=== PATIENT | male | born 1945 | race American Indian/Alaskan Native ===

== ENCOUNTER 2020-09-09 16:07 | Emergency (ER) | payer SELFPAY ==
[2020-09-09 16:39] VITALS: BP 148/94
--- NOTE | 2020-09-09 17:13 | Emergency Department Report ---
ED General Adult HPI - General Chief complaint: Sore Throat Stated complaint: THROAT SWOLLEN Time Seen by Provider: 09/09/20 16:55 Source: patient Mode of arrival: Ambulatory Limitations: No Limitations - History of Present Illness Initial comments: 74-year-old -[place] male patient presents with complaints of left-sided throat pain x1 day. He rates his current pain is 6/10 in severity and states it worsens with swallowing. He denies any dental pain, cough, chest pain, shortness of breath, difficulty opening his jaw, or fever/chills/sweats. -: Sudden - Related Data Previous Rx's Medication Instructions Recorded Last Taken Type Omeprazole 40 mg PO DAILY PRN #30 10/27/17 Unknown Rx HYDROcodone/APAP 5-325 [[place] 1 each PO Q6HR PRN #14 tablet 04/06/20 Unknown Rx 5/325] Omeprazole 20 mg PO DAILY #30 tab. 04/06/20 Unknown Rx Ondansetron [Zofran Odt] 4 mg PO Q8HR PRN #20 tab.rapdis 04/06/20 Unknown Rx Sucralfate [Carafate] 1 gm PO Q6HR #15 udc 04/06/20 Unknown Rx Acetaminophen 1,000 mg PO QID PRN #20 capsule 09/09/20 Unknown Rx Amoxicillin [Trimox CAP] 500 mg PO BID 10 Days #20 capsule 09/09/20 Unknown Rx Allergies Allergy/AdvReac Type Severity Reaction Status Date / Time shrimp Allergy Nausea Verified 09/09/20 16:36 ED Review of Systems ROS: Stated complaint: THROAT SWOLLEN Other details as noted in HPI Constitutional: denies: chills, diaphoresis, fever, malaise ENT: throat pain Respiratory: denies: cough, shortness of breath Cardiovascular: denies: chest pain Gastrointestinal: denies: abdominal pain, nausea, vomiting Skin: denies: rash Hematological/Lymphatic: denies: swollen glands ED Past Medical Hx - Past Medical History Previous Medical History?: Yes Hx Hypertension: Yes Hx Heart Attack/AMI: Yes Hx HIV: No Additional medical history: PUD, AVM - Surgical History Past Surgical History?: Yes Hx Coronary Stent: Yes (x2 2006) Additional Surgical History: Nasal Septum Repair - Social History Smoking Status: Never Smoker Substance Use Type: Marijuana - Medications Home Medications: Home Medications Medication Instructions Recorded Confirmed Last Taken Type Omeprazole 40 mg PO DAILY PRN #30 10/27/17 Unknown Rx HYDROcodone/APAP 5-325 [[place] 1 each PO Q6HR PRN #14 tablet 04/06/20 Unknown Rx 5/325] Omeprazole 20 mg PO DAILY #30 tab. 04/06/20 Unknown Rx Ondansetron [Zofran Odt] 4 mg PO Q8HR PRN #20 tab.rapdis 04/06/20 Unknown Rx Sucralfate [Carafate] 1 gm PO Q6HR #15 udc 04/06/20 Unknown Rx Acetaminophen 1,000 mg PO QID PRN #20 capsule 09/09/20 Unknown Rx Amoxicillin [Trimox CAP] 500 mg PO BID 10 Days #20 capsule 09/09/20 Unknown Rx ED Physical Exam - General Limitations: No Limitations General appearance: alert, in no apparent distress - Head Head exam: Present: atraumatic, normocephalic - Eye Eye exam: Present: normal appearance. Absent: scleral icterus - ENT ENT exam: Present: other (Uvula is midline) - Expanded ENT Exam Expanded Mouth exam: Present: tongue normal. Absent: drooling, trismus Throat exam: Positive: tonsillar erythema (Left), tonsillomegaly (Mild left). Negative: tonsillar exudate, R peritonsillar mass - Neck Neck exam: Present: normal inspection. Absent: lymphadenopathy - Respiratory Respiratory exam: Present: normal lung sounds bilaterally. Absent: respiratory distress - Cardiovascular Cardiovascular Exam: Present: regular rate, normal rhythm - Extremities Exam Extremities exam: Present: full ROM - Back Exam Back exam: Present: full ROM - Neurological Exam Neurological exam: Present: alert, oriented X3 - Psychiatric Psychiatric exam: Present: normal affect, normal mood - Skin Skin exam: Present: warm, dry, intact, normal color. Absent: rash, cyanosis, diaphoretic, erythema, ecchymosis ED Course Vital Signs 09/09/20 16:38 Temperature 98.1 F Pulse Rate 89 Respiratory 18 Rate Blood Pressure 148/94 O2 Sat by Pulse 98 Oximetry ED Medical Decision Making - Medical Decision Making 74-year-old -[place] male patient presents with complaints of left-sided throat pain x1 day. He rates his current pain is 6/10 in severity and states it worsens with swallowing. He denies any dental pain, cough, chest pain, shortness of breath, difficulty opening his jaw, or fever/chills/sweats. Will treat for strep with Amoxil. Recommend follow-up with PCP in 3 to 5 days. Vitals are normal, he is well-appearing, stable for discharge home. Strict return precautions were discussed in detail with patient who verbalized understanding. Critical care attestation.: If time is entered above; I have spent that time in minutes in the direct care of this critically ill patient, excluding procedure time. ED Disposition Clinical Impression: Acute bacterial pharyngitis Disposition: TO HOME OR SELFCARE Is pt being admited?: No Condition: Stable Instructions: Pharyngitis Prescriptions: Acetaminophen 1,000 mg PO QID PRN #20 capsule PRN Reason: pain Amoxicillin [Trimox CAP] 500 mg PO BID 10 Days #20 capsule Referrals: [facility] [Provider Group] - 3-5 Days
== END 2020-09-09 17:32 | disposition home or self-care (01) ==
LOC: ED 16:07
DX: J02.8 Acute pharyngitis due to other specified organisms (principal); B96.89 Other specified bacterial agents as the cause of diseases classified elsewhere; I10 Essential (primary) hypertension; I25.2 Old myocardial infarction; F12.90 Cannabis use, unspecified, uncomplicated; Z91.013 Allergy to seafood; Z79.899 Other long term (current) drug therapy; Z98.890 Other specified postprocedural states
CPT/HCPCS: 99281

== ENCOUNTER 2021-03-17 08:38 | Inpatient (IN) | payer MEDICARE ==
[2021-03-17] MEDS ORDERED: ONDANSETRON 4 MG/2 ML INJ ONE (10:03)
[2021-03-17] MEDS ORDERED: fentaNYL 100 MCG/2 ML INJ ONE (10:08)
[2021-03-17] MEDS ORDERED: ONDANSETRON 4 MG/2 ML INJ IV ONE (10:12)
[2021-03-17] MEDS ORDERED: SODIUM CHLORIDE 0.9% 1000 ML 1,000 ML IV ONE (10:12)
[2021-03-17] MEDS ORDERED: fentaNYL 100 MCG/2 ML INJ IV ONE (10:12)
--- NOTE | 2021-03-17 10:19 | Emergency Department Report ---
HPI - HPI HPI: Room 23 The patient is a 75-year-old male present with a chief complaint of nausea vomiting. The patient states he has had "stomach issues" for years. Patient states he is uncertain of his diagnosis. The patient states for the past 2 to 3 days he has had lower abdominal discomfort and today he developed intractable nausea vomiting. Patient denies diarrhea. Patient denies history of fever dysuria or hematuria. Patient denies having abdominal pain but describes it as a "discomfort." <LAVONNE LR - Last Filed: 03/17/21 15:23> <KHANH LATIF - Last Filed: 03/17/21 17:27> - General Chief Complaint: Nausea/Vomiting/Diarrhea Time Seen by Provider: 03/17/21 09:58 ED Past Medical Hx - Past Medical History Previous Medical History?: Yes Hx Hypertension: Yes Hx Heart Attack/AMI: Yes Hx HIV: No Additional medical history: PUD, AVM - Surgical History Past Surgical History?: Yes Hx Coronary Stent: Yes (x2 2006) Additional Surgical History: Nasal Septum Repair - Family History Family history: no significant - Social History Smoking Status: Former Smoker (None x10 years) Substance Use Type: Alcohol (Occasional), Marijuana <LAVONNE LR - Last Filed: 03/17/21 15:23> <KHANH LATIF - Last Filed: 03/17/21 17:27> - Medications Home Medications: Home Medications Medication Instructions Recorded Confirmed Last Taken Type Omeprazole 40 mg PO DAILY PRN #30 10/27/17 Unknown Rx HYDROcodone/APAP 5-325 [[place] 1 each PO Q6HR PRN #14 tablet 04/06/20 Unknown Rx 5/325] Omeprazole 20 mg PO DAILY #30 tab. 04/06/20 Unknown Rx Ondansetron [Zofran Odt] 4 mg PO Q8HR PRN #20 tab.harriet 04/06/20 Unknown Rx Sucralfate [Carafate] 1 gm PO Q6HR #15 udc 04/06/20 Unknown Rx Acetaminophen 1,000 mg PO QID PRN #20 capsule 09/09/20 Unknown Rx Amoxicillin [Trimox CAP] 500 mg PO BID 10 Days #20 capsule 09/09/20 Unknown Rx HYDROcodone/APAP 5-325 [[place] 1 - 2 each PO Q6HR PRN #10 tablet 03/17/21 Unknown Rx 5/325] Meclizine [Antivert] 25 mg PO TID PRN #20 tablet 03/17/21 Unknown Rx Promethazine [Phenergan] 25 mg PO Q6HR PRN #20 tab 03/17/21 Unknown Rx Promethazine [Phenergan] 25 mg [place] Q6HR PRN #5 supp.rect 03/17/21 Unknown Rx ED Review of Systems ROS: Stated complaint: ABD PAIN Other details as noted in HPI Constitutional: denies: fever Eyes: denies: eye pain ENT: denies: throat pain Respiratory: no symptoms reported Cardiovascular: denies: chest pain Endocrine: no symptoms reported Gastrointestinal: nausea, vomiting, other (Abdominal discomfort). denies: diarrhea Genitourinary: denies: testicular pain Musculoskeletal: denies: back pain Neurological: denies: headache <LAVONNE LR K - Last Filed: 03/17/21 15:23> ROS: Stated complaint: ABD PAIN Other details as noted in HPI <KHANH LATIF S - Last Filed: 03/17/21 17:27> Physical Exam - Physical Exam Vital Signs: Vital Signs 03/17/21 09:37 Temperature 97.8 F Pulse Rate 98 H Respiratory 18 Rate Blood Pressure 190/96 [Right] O2 Sat by Pulse 99 Oximetry Physical Exam: GENERAL: The patient is well-developed well-nourished male lying on stretcher holding emesis bag appearing to be in mild discomfort. [] HEENT: Normocephalic. Atraumatic. Extraocular motions are intact. Patient has moist mucous membranes. NECK: Supple. Trachea midline CHEST/LUNGS: Clear to auscultation. There is no respiratory distress noted. HEART/CARDIOVASCULAR: Regular. There is no tachycardia. There is no gallop rub or murmur. ABDOMEN: Abdomen is soft, nontender. Patient has normal bowel sounds. There is no abdominal distention. SKIN: There is no rash. There is no edema. There is no diaphoresis. NEURO: The patient is awake, alert, and oriented. The patient is cooperative. The patient has no focal neurologic deficits. The patient has normal speech MUSCULOSKELETAL: There is no CVA tenderness. There is no evidence of acute injury. <LAVONNE LR - Last Filed: 03/17/21 15:23> - Physical Exam Vital Signs: Vital Signs 03/17/21 09:37 Temperature 97.8 F Pulse Rate 98 H Respiratory 18 Rate Blood Pressure 190/96 [Right] O2 Sat by Pulse 99 Oximetry <KHANH LATIF S - Last Filed: 03/17/21 17:27> ED Course Vital Signs 03/17/21 09:37 Temperature 97.8 F Pulse Rate 98 H Respiratory 18 Rate Blood Pressure 190/96 [Right] O2 Sat by Pulse 99 Oximetry - Reevaluation(s) Reevaluation #1: 03/17/21 14:09 Patient states he is feeling better. Patient denies nausea currently. Will give p.o. challenge 03/17/21 15:46 Patient tolerated p.o. challenge but states he is unsteady on his feet. Patient is not orthostatic. Awaiting CT head. CT head negative and patient improved with meclizine he will be discharged home otherwise he will be admitted to the hospital for further observation - Consultations Consultation #1: 03/17/21 15:16 [facility] paged 03/17/21 15:23 Spoke with [facility]-they state they do not accept transfers to the ED or from other hospitals ED to the floor. States patient possibly may be transferred from the floor after admission but not from the ED. <LAVONNE LR - Last Filed: 03/17/21 15:23> Vital Signs 03/17/21 09:37 Temperature 97.8 F Pulse Rate 98 H Respiratory 18 Rate Blood Pressure 190/96 [Right] O2 Sat by Pulse 99 Oximetry - Consultations Consultation #2: 03/17/21 17:[address] scan result of the head showing an area of hyperattenuation to the anterior body of the corpus callosum that could represent sequela of prior injury versus a less likely subarachnoid hemorrhage, I spoke with the neurosurgeon on-call, Dr. Dukes. Dr. Dukes requested the patient receive an MRI of the head/brain with and without contrast and he will consult on the patient. <KHANH LATIF - Last Filed: 03/17/21 17:27> ED Medical Decision Making - Lab Data Result diagrams: 03/17/21 10:40 03/17/21 10:40 Laboratory Tests 03/17/21 03/17/21 10:40 10:40 WBC 4.8 RBC 4.80 Hgb 14.5 Hct 41.6 MCV 87 MCH 30 MCHC 35 H RDW 15.6 H Plt Count 263 Lymph % (Auto) 17.6 [place] % (Auto) 3.4 Eos % (Auto) 0.7 Baso % (Auto) 2.7 H Lymph # (Auto) 0.8 L [place] # (Auto) 0.2 Eos # (Auto) 0.0 Baso # (Auto) 0.1 Seg Neutrophils % 75.6 H Seg Neutrophils # 3.6 Sodium 138 Potassium 3.7 Chloride 100.7 Carbon Dioxide 22 Anion Gap 19 BUN 7 L Creatinine 0.9 Estimated GFR > 60 BUN/Creatinine Ratio 8 Glucose 64 L Calcium 6.1 L Total Bilirubin 0.30 AST 22 ALT 22 Alkaline Phosphatase 73 Total Protein 6.4 Albumin 3.9 Albumin/Globulin Ratio 1.6 Lipase 26 - Radiology Data Radiology results: report reviewed (CT abdomen pelvis), image reviewed (CT abdomen pelvis) [facility] [address] [id number] Cat Scan Report Signed Patient: KARRI MA MR#: [id number] : 1945 Acct:[id number] Age/Sex: 75 / M ADM Date: 03/17/21 Loc: ED Attending Dr: Niko byers Physician: LAVONNE LR MD Date of Service: 03/17/21 Procedure(s): CT abdomen pelvis w con Accession Number(s): [id number] cc: LAVONNE LR MD CT ABDOMEN AND PELVIS WITH CONTRAST HISTORY: Lower abdominal discomfort, intractable nausea and vomiting COMPARISON: 04/05/2020 TECHNIQUE: Axial CT images were obtained through the abdomen and pelvis after 100 cc of IV contrast. Sagittal and coronal reformatted images. All CT scans at this location are performed using CT dose reduction for ALARA by means of automated exposure control. FINDINGS: CT ABDOMEN: Lung Bases: Clear. Liver: No significant abnormality. Biliary: No significant abnormality. Spleen: No significant abnormality. Unenlarged. Pancreas: No significant abnormality. Adrenals: No significant abnormality. Kidneys: Multiple bilateral simple renal cysts appear stable in size and number. No hydronephrosis. Lymphatics: No lymphadenopathy. Vasculature: No significant abnormality. Bowel/Peritoneum: No significant abnormality. No free air. No free fluid. Fluid-filled loops of small bowel seen on the previous exam consistent with an ileus have resolved. The appendix is not confidently identified. CT PELVIS: : The bladder is unremarkable. Stable mild prostatomegaly measuring 5.7 cm in diameter. Osseous Structures: Stable moderate multilevel lumbar spondylosis. No acute osseous findings. Additional Findings: None IMPRESSION: No acute inflammatory process is appreciated in the abdomen or pelvis. No evidence for GI obstruction. Multiple bilateral renal cysts, stable. Prostatomegaly, stable. Signer Name: Kevin Coronel Jr, MD Signed: 03/17/2021 1:37 PM Workstation Name: [id number] Transcribed By: TTR Dictated By: KEVIN CORONEL JR, MD Electronically Authenticated By: KEVIN CORONEL JR, MD Signed Date/Time: 03/17/211336 DD/ 31 TD/TT: Print Cancel - Differential Diagnosis Gastroparesis, gastritis, small bowel obstruction, pancreatitis, UTI, verti <LAVONNE LR - Last Filed: 03/17/21 15:23> - Lab Data Result diagrams: 03/17/21 10:40 03/17/21 10:40 - Radiology Data CT HEAD WITHOUT CONTRAST INDICATION / CLINICAL INFORMATION: Vertigo. TECHNIQUE: All CT scans at this location are performed using CT dose reduction for ALARA by means of automated exposure control. COMPARISON: None available. FINDINGS: BRAIN PARENCHYMA: Small focal area of hyperattenuation in the left anterior body of the corpus callosum is favored to reflect sequela of prior insult or small vascular malformation. Small area of subarachnoid hemorrhage is felt less likely. Otherwise, no acute intracranial hemorrhage. No evidence of recent infarct. Mild chronic small vessel ischemic disease. VENTRICULAR SYSTEM/EXTRA- AXIAL SPACES: Age-related cerebral atrophy. No extra-axial fluid collection. ORBITS: Normal as visualized. SKELETAL SYSTEM/SOFT TISSUES: Normal bones and so ft tissues. PARANASAL SINUSES/MASTOID AIR CELLS: No significant abnormality. ADDITIONAL FINDINGS: None. IMPRESSION: 1. Small focus of hyperattenuation in the anterior body of the corpus callosum is favored to reflect sequela of prior insult or possibly small vascular malformation. Small area of subarachnoid hemorrhage is felt less likely, though not entirely excluded. Recommend correlation with MRI. 2. Otherwise, no acute intracranial abnormality. - Medical Decision Making I was signed out this patient to follow-up with the CT results of the head. Initially the patient was here for abdominal pain but later admitted that he has been having some issues with lightheadedness/dizziness, disequilibrium. I went and spoke with the patient myself and did a separate examination. The patient does admit to the lightheadedness/dizziness and the disequilibrium, but also says that he has been having some decreased vision and a mild generalized headache, all over the past 2 to 3 days. On examination the patient has pretty significant horizontal nystagmus that increases his lightheadedness/dizziness. This part appears consistent with vertigo but the patient did not get any relief from the meclizine given earlier. No facial asymmetry. No pronator drift or dysmetria. The patient is awake, oriented, AAO x3. Cranial nerves II through XII grossly intact. The CT scan of the head came back showing a an area of hyperattenuation to the anterior portion of the corpus callosum that could represent sequela of previous injury, and less likely a small area of subarachnoid hemorrhage, but the subarachnoid cannot be excluded and radiology recommends an MRI. I spoke with the neurosurgeon on-call who recommends an MRI both with and without contrast of the brain in the morning and he will consult on the patient. The patient has been accepted for admission by the hospitalist, Dr. Currie. <KHANH LATIF S - Last Filed: 03/17/21 17:27> Critical care attestation.: If time is entered above; I have spent that time in minutes in the direct care of this critically ill patient, excluding procedure time. <LAVONNE LR - Last Filed: 03/17/21 15:23> Critical care attestation.: If time is entered above; I have spent that time in minutes in the direct care of this critically ill patient, excluding procedure time. <KHANH LATIF - Last Filed: 03/17/21 17:27> ED Disposition <LAVONNE LR - Last Filed: 03/17/21 15:23> Is pt being admited?: Yes Time of Disposition: 17:10 <KHANH LATIF S - Last Filed: 03/17/21 17:27> Clinical Impression: Abdominal discomfort, Vertigo, Disequilibrium, Subarachnoid bleed Nausea & vomiting Qualifiers: Vomiting type: unspecified Vomiting Intractability: unspecified Qualified Code(s): R11.2 - Nausea with vomiting, unspecified Abdominal pain Qualifiers: Abdominal location: generalized Qualified Code(s): R10.84 - Generalized abdominal pain Hypertension Qualifiers: Hypertension type: essential hypertension Qualified Code(s): I10 - Essential (primary) hypertension Disposition: OP ADMIT IP TO THIS HOSP Condition: Serious Instructions: Hypertension (ED) Prescriptions: Meclizine [Antivert] 25 mg PO TID PRN #20 tablet PRN Reason: Vertigo HYDROcodone/APAP 5-325 [[place] 5/325] 1 - 2 each PO Q6HR PRN #10 tablet PRN Reason: Pain Promethazine [Phenergan] 25 mg PO Q6HR PRN #20 tab PRN Reason: Nausea Promethazine [Phenergan] 25 mg [place] Q6HR PRN #5 supp.rect PRN Reason: Vomiting
[2021-03-17 12:00] LABS: Basophils # (Auto) 0.1 K/mm3 (0.0-0.1); Basophils % (Auto) 2.7 % (0.0-1.8); Eosinophils % (Auto) 0.7 % (0.0-4.3); Hematocrit 41.6 % (35.5-45.6); Hemoglobin 14.5 gm/dl (11.8-15.2); Lymphocytes # (Auto) 0.8 K/mm3 (1.2-5.4); Lymphocytes % (Auto) 17.6 % (13.4-35.0); Mean Corpuscular HGB Conc 35 % (32-34); Mean Corpuscular Volume 87 fl (84-94); Monocytes # (Auto) 0.2 K/mm3 (0.0-0.8); Monocytes % (Auto) 3.4 % (0.0-7.3); Platelet Count 263 K/mm3 (140-440); Red Cell Distribution Width 15.6 % (13.2-15.2)
[2021-03-17 12:24] LABS: Alanine Aminotransferase 22 units/L (7-56); Albumin 3.9 g/dL (3.9-5); BUN/Creatinine Ratio 8; Blood Urea Nitrogen 7 mg/dL (9-20); Calcium 6.1 mg/dL (8.4-10.2); Hemolysis Index 5
--- NOTE | 2021-03-17 13:41 | Cat Scan Report ---
CT ABDOMEN AND PELVIS WITH CONTRAST HISTORY: Lower abdominal discomfort, intractable nausea and vomiting COMPARISON: 04/05/2020 TECHNIQUE: Axial CT images were obtained through the abdomen and pelvis after 100 cc of IV contrast. Sagittal and coronal reformatted images. All CT scans at this location are performed using CT dose re duction for ALARA by means of automated exposure control. FINDINGS: CT ABDOMEN: Lung Bases: Clear. Liver: No significant abnormality. Biliary: No significant abnormality. Spleen: No significant abnormality. Unenlarged. Pancreas: No significant abnormality. Adrenals: No significant abnormality. Kidneys: Multiple bilateral simple renal cysts appear stable in size and number. No hydronephrosis. Lymphatics: No lymphadenopathy. Vasculature: No significant abnormality. Bowel/Peritoneum: No significant abnormality. No free air. No free fluid. Fluid-filled loops of small bowel seen on the previous exam consistent with an ileus have resolved. The appendix is not confiden tly identified. CT PELVIS: : The bladder is unremarkable. Stable mild prostatomegaly measuring 5.7 cm in diameter. Osseous Structures: Stable moderate multilevel lumbar spondylosis. No acute osseous findings. Additional Findings: None IMPRESSION: No acute inflammatory process is appreciated in the abdomen or pelvis. No evidence for GI obstruction . Multiple bilateral renal cysts, stable. Prostatomegaly, stable. Signer Name: Kevin Coronel Jr, MD Signed: 03/17/2021 1:37 PM Workstation Name: [id number]
[2021-03-17] MEDS ORDERED: MECLIZINE 25 MG TAB PO ONE (15:02)
[2021-03-17] MEDS ORDERED: DEXTROSE 50% IN WATER (25GM) 50 ML SYRINGE IV ONE (16:16)
[2021-03-17] MEDS ORDERED: CALCIUM GLUCONATE 1,000 MG in SODIUM CHLORIDE 0.9% 100 ML IV ONE (16:30)
--- NOTE | 2021-03-17 16:46 | Cat Scan Report ---
CT HEAD WITHOUT CONTRAST INDICATION / CLINICAL INFORMATION: Vertigo. TECHNIQUE: All CT scans at this location are performed using CT dose reduction for ALARA by means of automated exposure control. COMPARISON: None available. FINDINGS: BRAIN PARENCHYMA: Small focal area of hyperattenuation in the left anterior body of the corpus callos um is favored to reflect sequela of prior insult or small vascular malformation. Small area of subara chnoid hemorrhage is felt less likely. Otherwise, no acute intracranial hemorrhage. No evidence of re cent infarct. Mild chronic small vessel ischemic disease. VENTRICULAR SYSTEM/EXTRA-AXIAL SPACES: Age-related cerebral atrophy. No extra-axial fluid collection. ORBITS: Normal as visualized. SKELETAL SYSTEM/SOFT TISSUES: Normal bones and soft tissues. PARANASAL SINUSES/MASTOID AIR CELLS: No significant abnormality. ADDITIONAL FINDINGS: None. IMPRESSION: 1. Small focus of hyperattenuation in the anterior body of the corpus callosum is favored to reflect sequela of prior insult or possibly small vascular malformation. Small area of subarachnoid hemorrhag e is felt less likely, though not entirely excluded. Recommend correlation with MRI. 2. Otherwise, no acute intracranial abnormality. Signer Name: Kwame Paiz MD Signed: 03/17/2021 4:42 PM Workstation Name: [id number]
[2021-03-17] MEDS ORDERED: ACETAMINOPHEN 650 MG RECT SUPP PR PRN (17:09)
[2021-03-17] MEDS ORDERED: PROMETHAZINE 25 MG RECT SUPP PR PRN (17:09)
[2021-03-17] MEDS ORDERED: ACETAMINOPHEN 325 MG TAB PO PRN (17:09)
[2021-03-17] MEDS ORDERED: MAGNESIUM HYDROXIDE (MOM) ORAL LIQD UDC PO PRN (17:09)
--- NOTE | 2021-03-17 17:09 | History and Physical Report ---
History of Present Illness Chief complaint: I do not feel well History of present illness: 75 YO Male with HTN, NM, PUD, AVM, CAD S/P Stent Placement presents to ED for evaluation. Patient reports " I do not feel well". Patient states that he has experienced abdominal discomfort, nausea, multiple episodes of vomiting, abdominal discomfort over the past 2 days with persistent symptoms over the same timeframe. EMS was notified and upon arrival the patient was found to be in distress and subsequently transported to [facility] for further care and evaluation of the aforementioned symptoms. The patient was seen and evaluated in the emergency department. All lab and imaging studies reviewed. Patient underwent CT scan of the abdomen and pelvis which did not reveal any acute findings. CT scan of the brain revealed hypoattenuation in the anterior corpus callosum which is consistent with intracranial hemorrhage. Patient mated to [facility] for further care and evaluation. Neurosurgery team consulted. Patient denies fever, chills, chest pain, palpitation, productive cough, skin rash, recent ill contacts, or known exposure to COVID-19. Prior admission on 10/26/2017 reviewed. All medication listed at time of admission has been reconciled. Advanced care planning conducted in ED. Past History Past Medical History: acute NM, CAD, hypertension, other (See HPI) Past Surgical History: No surgical history, Other (Nasal septal repair) Social history: single. denies: smoking, alcohol abuse, prescription drug abuse Family history: denies: diabetes, hypertension Medications and Allergies Allergies Allergy/AdvReac Type Severity Reaction Status Date / Time shrimp Allergy Nausea Verified 09/09/20 16:36 Home Medications Medication Instructions Recorded Confirmed Last Taken Type Omeprazole 40 mg PO QDAY 03/17/21 03/17/21 Unknown History Tamsulosin [Flomax] 0.4 mg PO QDAY 03/17/21 03/17/21 Unknown History Review of Systems Constitutional: no weight loss, no fever, no chills, no sweats, no night sweats Ears, nose, mouth and throat: no ear pain, no ear discharge, no tinnitis, no nose pain, no nasal congestion, no nasal discharge Cardiovascular: no chest pain, no edema, no syncope Respiratory: no cough, no cough with sputum, no excessive sputum, no hemoptysis Gastrointestinal: nausea, vomiting, no constipation, no hematemesis, no loss of appetite Genitourinary Male: no hematuria, no flank pain, no discharge, no urinary frequency, no urinary hesitancy Rectal: no pain, no incontinence, no bleeding Musculoskeletal: no neck stiffness, no neck pain, no arm numbness/tingling, no low back pain, no shooting leg pain, no leg numbness/tingling Integumentary: no rash, no redness, no sores, no jaundice Neurological: no head injury, no parathesias, no numbness Psychiatric: no anxiety, no memory loss, no change in libido Endocrine: no cold intolerance, no heat intolerance, no excessive thirst, no polydipsia, no polyuria Hematologic/Lymphatic: no easy bruising, no easy bleeding, no lymphadenopathy Allergic/Immunologic: no urticaria, no wheezing, no persistent infections, no anaphylaxis Exam - Constitutional Vitals: Temp Pulse Resp BP Pulse Ox 97.8 F 98 H 18 190/96 99 03/17/21 09:37 03/17/21 09:37 03/17/21 09:37 03/17/21 09:37 03/17/21 09:37 General appearance: Present: mild distress - EENT Eyes: Present: PERRL ENT: hearing intact, clear oral mucosa - Neck Neck: Present: supple, normal ROM - Respiratory Respiratory effort: normal Respiratory: bilateral: CTA - Cardiovascular Heart Sounds: Present: S1 & S2. Absent: rub, click - Extremities Extremities: pulses symmetrical, No edema Peripheral Pulses: within normal limits - Abdominal General gastrointestinal: Present: soft, non-tender, non-distended, normal bowel sounds Male genitourinary: Present: normal - Integumentary Integumentary: Present: clear, warm, dry - Musculoskeletal Musculoskeletal: gait normal, strength equal bilaterally - Psychiatric Psychiatric: appropriate mood/affect, intact judgment & insight - Neurologic Neurologic: CNII-XII intact, moves all extremities Results - Labs CBC & Chem 7: 03/17/21 10:40 03/17/21 10:40 Labs: Abnormal lab results 03/17/21 03/17/21 Range/Units 10:40 10:40 MCHC 35 H (32-34) % RDW 15.6 H (13.2-15.2) % Baso % (Auto) 2.7 H (0.0-1.8) % Lymph # (Auto) 0.8 L (1.2-5.4) K/mm3 Seg Neutrophils % 75.6 H (40.0-70.0) % BUN 7 L (9-20) mg/dL Glucose 64 L (75-100) mg/dL Calcium 6.1 L (8.4-10.2) mg/dL Assessment and Plan - Patient Problems (1) ICH (intracerebral hemorrhage) Current Visit: Yes Status: Acute Plan to address problem: Neurosurgery consulted, CT scan head, supportive care, continue medical management as per neurosurgery recommendations. (2) PUD (peptic ulcer disease) Current Visit: Yes Status: Acute Plan to address problem: PPI therapy, supportive care, outpatient GI follow-up for further care. (3) HTN (hypertension) Current Visit: Yes Status: Acute Qualifiers: Hypertension type: essential hypertension Qualified Code(s): I10 - Essential (primary) hypertension Plan to address problem: Monitor blood pressure every shift, continue medical management. (4) DVT prophylaxis Current Visit: Yes Status: Acute Plan to address problem: SCDs bilateral lower extremities while in bed, hold anticoagulation due to intracranial hemorrhage. (5) Advance care planning Current Visit: Yes Status: Acute Plan to address problem: Disease education conducted, care plan discussed, diagnosis discussed, patient is full code, patient knowledges understanding and agreement with care plan, +30 minutes.
[2021-03-17 17:11] LABS: Bilirubin,Urine NEG (Negative); Blood,Urine NEG (Negative); Color,Urine Yellow (Yellow); Mucus,Urine FEW /HPF; Protein,Urine <15 mg/dL mg/dL (Negative)
[2021-03-17] MEDS ORDERED: ACETAMINOPHEN 500 MG PO PRN (17:12)
[2021-03-17] MEDS ORDERED: NON-FORMULARY EACH (Omeprazole 40 MG) PO PRN (17:12)
[2021-03-17] MEDS ORDERED: ONDANSETRON 4 MG ODT TAB PO PRN (17:12)
[2021-03-17] MEDS ORDERED: ACETAMINOPHEN 500 MG TAB PO PRN (17:16)
[2021-03-17] MEDS: SUCRALFATE 1 GM/10 ML ORAL LIQD PO SCH (18:59)
[2021-03-17] MEDS: PANTOPRAZOLE 40 MG TAB PO SCH (19:00)
[2021-03-18] MEDS: SUCRALFATE 1 GM/10 ML ORAL LIQD PO SCH ×5 (00:13→23:23)
[2021-03-18] MEDS: PANTOPRAZOLE 40 MG TAB PO SCH (11:40)
--- NOTE | 2021-03-18 12:23 | Progress Note ---
Assessment and Plan Assessment and plan: 75 YO Male with HTN, CO, PUD, AVM, CAD S/P Stent Placement presents to ED for evaluation. Patient reports " I do not feel well". Patient states that he has experienced abdominal discomfort, nausea, multiple episodes of vomiting, abdominal discomfort over the past 2 days with persistent symptoms over the same timeframe. EMS was notified and upon arrival the patient was found to be in distress and subsequently transported to [facility] for further care and evaluation of the aforementioned symptoms. The patient was seen and evaluated in the emergency department. All lab and imaging studies reviewed. Patient underwent CT scan of the abdomen and pelvis which did not reveal any acute findings. CT scan of the brain revealed hypoattenuation in the anterior corpus callosum which is consistent with intracranial hemorrhage. Patient mated to [facility] for further care and evaluation. Neurosurgery team consulted. Patient denies fever, chills, chest pain, palpitation, productive cough, skin rash, recent ill contacts, or known exposure to COVID-19. Prior admission on 10/26/2017 reviewed. All medication listed at time of admission has been reconciled. Advanced care planning conducted in ED. 03/18: From review of records and also review of imaging studies I did notice that the ER physician documented neurosurgery wanted an MRI both with and without contrast of the brain will proceed to ordering this. Patient reports mild improvement in symptoms although still with some lightheadedness and dizziness disequilibrium could not be fully evaluated at this time. He makes it known that he is abdominal pain has been ongoing for years and he currently had a colonoscopy and is currently under the care of tube coverer although do not know the name of the tube coverer. Patient continues to await neurosurgery will go ahead and consult neurologist in the meantime while pending the MRI studies. (1) ICH (intracerebral hemorrhage) Current Visit: Yes Status: Acute Plan to address problem: Neurosurgery consulted, CT scan head, supportive care, continue medical management as per neurosurgery recommendations. (2) PUD (peptic ulcer disease) Current Visit: Yes Status: Acute Plan to address problem: PPI therapy, supportive care, outpatient GI follow-up for further care. (3) HTN (hypertension) Current Visit: Yes Status: Acute Qualifiers: Hypertension type: essential hypertension Qualified Code(s): I10 - Essential (primary) hypertension Plan to address problem: Monitor blood pressure every shift, continue medical management. (4) DVT prophylaxis Current Visit: Yes Status: Acute Plan to address problem: SCDs bilateral lower extremities while in bed, hold anticoagulation due to intracranial hemorrhage. (5) Advance care planning Current Visit: Yes Status: Acute Plan to address problem: Disease education conducted, care plan discussed, diagnosis discussed, patient is full code, patient knowledges understanding and agreement with care plan, +30 minutes. Plan of care discussed in detail with the patient and also with neurologist. History Interval history: Patient seen and examined reports improvement in symptoms still with blurry vision on both eyes. Hospitalist Physical - Physical exam Narrative exam: VITAL SIGNS: Reviewed. GENERAL: The patient appears normally developed, Vital signs as documented. HEAD: No signs of head trauma. EYES: Pupils are equal. Extraocular motions intact. Mild vertical nystagmus EARS: Hearing grossly intact. MOUTH: Oropharynx is normal. NECK: No adenopathy, no JVD. CHEST: Chest with clear breath sounds bilaterally. No wheezes, rales, or rhonchi. CARDIAC: Regular rate and rhythm. S1 and S2, without murmurs, gallops, or rubs. VASCULAR: No Edema. Peripheral pulses normal and equal in all extremities. ABDOMEN: Soft, non tender and non distended. No rebound or guarding, and no masses palpated. Bowel Sounds normal. MUSCULOSKELETAL: Good range of motion of all major joints. Extremities without clubbing, cyanosis or edema. NEUROLOGIC EXAM: Alert and oriented x 3 No focal sensory or strength deficits. Speech normal. Follows commands. PSYCHIATRIC: Mood normal. SKIN: detail exam as documented in skin assessment - Constitutional Vitals: Temp Pulse Resp BP Pulse Ox 98.6 F 83 16 142/89 99 03/18/21 11:00 03/18/21 11:00 03/18/21 11:00 03/18/21 11:00 03/18/21 11:00 General appearance: Present: mild distress Results - Labs CBC & Chem 7: 03/17/21 10:40 03/17/21 10:40 Labs: Laboratory Last Values WBC 4.8 K/mm3 (4.5-11.0) 03/17/21 10:40 RBC 4.80 M/mm3 (3.65-5.03) 03/17/21 10:40 Hgb 14.5 gm/dl (11.8-15.2) 03/17/21 10:40 Hct 41.6 % (35.5-45.6) 03/17/21 10:40 MCV 87 fl (84-94) 03/17/21 10:40 MCH 30 pg (28-32) 03/17/21 10:40 MCHC 35 % (32-34) H 03/17/21 10:40 RDW 15.6 % (13.2-15.2) H 03/17/21 10:40 Plt Count 263 K/mm3 (140-440) 03/17/21 10:40 Lymph % (Auto) 17.6 % (13.4-35.0) 03/17/21 10:40 [place] % (Auto) 3.4 % (0.0-7.3) 03/17/21 10:40 Eos % (Auto) 0.7 % (0.0-4.3) 03/17/21 10:40 Baso % (Auto) 2.7 % (0.0-1.8) H 03/17/21 10:40 Lymph # (Auto) 0.8 K/mm3 (1.2-5.4) L 03/17/21 10:40 [place] # (Auto) 0.2 K/mm3 (0.0-0.8) 03/17/21 10:40 Eos # (Auto) 0.0 K/mm3 (0.0-0.4) 03/17/21 10:40 Baso # (Auto) 0.1 K/mm3 (0.0-0.1) 03/17/21 10:40 Seg Neutrophils % 75.6 % (40.0-70.0) H 03/17/21 10:40 Seg Neutrophils # 3.6 K/mm3 (1.8-7.7) 03/17/21 10:40 Sodium 138 mmol/L (137-145) 03/17/21 10:40 Potassium 3.7 mmol/L (3.6-5.0) 03/17/21 10:40 Chloride 100.7 mmol/L (98-107) 03/17/21 10:40 Carbon Dioxide 22 mmol/L (22-30) 03/17/21 10:40 Anion Gap 19 mmol/L 03/17/21 10:40 BUN 7 mg/dL (9-20) L 03/17/21 10:40 Creatinine 0.9 mg/dL (0.8-1.3) 03/17/21 10:40 Estimated GFR > 60 ml/min 03/17/21 10:40 BUN/Creatinine Ratio 8 % 03/17/21 10:40 Glucose 64 mg/dL (75-100) L 03/17/21 10:40 Calcium 6.1 mg/dL (8.4-10.2) L 03/17/21 10:40 Total Bilirubin 0.30 mg/dL (0.1-1.2) 03/17/21 10:40 AST 22 units/L (5-40) 03/17/21 10:40 ALT 22 units/L (7-56) 03/17/21 10:40 Alkaline Phosphatase 73 units/L (35-129) 03/17/21 10:40 Total Protein 6.4 g/dL (6.3-8.2) 03/17/21 10:40 Albumin 3.9 g/dL (3.9-5) 03/17/21 10:40 Albumin/Globulin Ratio 1.6 % 03/17/21 10:40 Triglycerides 67 mg/dL (2-149) 03/18/21 05:12 Cholesterol 168 mg/dL (50-199) 03/18/21 05:12 LDL Cholesterol Direct 130 mg/dL (50-130) 03/18/21 05:12 HDL Cholesterol 42 mg/dL (40-59) 03/18/21 05:12 Cholesterol/HDL Ratio 4.00 % 03/18/21 05:12 Lipase 26 units/L (13-60) 03/17/21 10:40 Urine Color Yellow (Yellow) 03/17/21 Unknown Urine Turbidity Clear (Clear) 03/17/21 Unknown Urine pH 7.0 (5.0-7.0) 03/17/21 Unknown Ur Specific [place] 1.044 (1.003-1.030) H 03/17/21 Unknown Urine Protein <15 mg/dl mg/dL (Negative) 03/17/21 Unknown Urine Glucose (UA) Neg mg/dL (Negative) 03/17/21 Unknown Urine Ketones Tr mg/dL (Negative) 03/17/21 Unknown Urine Blood Neg (Negative) 03/17/21 Unknown Urine Nitrite Neg (Negative) 03/17/21 Unknown Urine Bilirubin Neg (Negative) 03/17/21 Unknown Urine Urobilinogen 2.0 mg/dL (<2.0) 03/17/21 Unknown Ur Leukocyte Esterase Neg (Negative) 03/17/21 Unknown Urine WBC (Auto) 1.0 /HPF (0.0-6.0) 03/17/21 Unknown Urine RBC (Auto) 1.0 /HPF (0.0-6.0) 03/17/21 Unknown U Epithel Cells (Auto) < 1.0 /HPF (0-13.0) 03/17/21 Unknown Urine Mucus Few /HPF 03/17/21 Unknown Active Medications - Current Medications Current Medications: Generic Name Dose Route Start Last Admin Trade Name Freq PRN Reason Stop Dose Admin Acetaminophen 650 mg 03/17/21 17:09 Acetaminophen 325 Mg Tab PO Q4H PRN Pain, Mild (1-3) Acetaminophen 650 mg 03/17/21 17:09 Acetaminophen 650 Mg Rect Supp [place] Q4H PRN Pain, Mild (1-3) Hydrocodone Bitart/Acetaminophen 1 each 03/17/21 17:12 Hydrocodone/Acetaminophen 5-325 Mg Tab PO Q6HR PRN Pain, Moderate (4-6) Al Hydrox/Mg Hydrox/Simethicone 30 ml 03/17/21 17:09 Alum-Mag Hydroxide-Simethicone [phone]/5ml Oral Liqd 30 Ml PO Q4H PRN Indigestion Bisacodyl 10 mg 03/17/21 17:09 Bisacodyl 10 Mg Rect Supp [place] QDAY PRN Constipation unrelieved by MOM Magnesium Hydroxide 30 ml 03/17/21 17:09 Magnesium Hydroxide (Mom) Oral Liqd Udc PO Q4H PRN Constipation Ondansetron HCl 4 mg 03/17/21 17:09 Ondansetron 4 Mg/2 Ml Inj IV Q8H PRN N/V unrelieved by Reglan Ondansetron HCl 4 mg 03/17/21 17:12 Ondansetron 4 Mg Odt Tab PO Q8HR PRN Nausea And Vomiting Pantoprazole Sodium 40 mg 03/17/21 18:00 03/18/21 11:40 Pantoprazole 40 Mg Tab PO 40 mg DAILY DANIS Administration Promethazine HCl 25 mg 03/17/21 17:09 Promethazine 25 Mg Rect Supp [place] Q6H PRN Nausea And Vomiting Sucralfate 1 gm 03/17/21 18:00 03/18/21 11:40 Sucralfate 1 Gm/10 Ml Oral Liqd PO 1 gm Q6HR DANIS Administration
--- NOTE | 2021-03-18 14:22 | Consultation ---
History of Present Illness Consult date: 03/18/21 Reason for Consult: ICH History of present illness: I do not feel well History of present illness: 75 YO Male with HTN, NE, PUD, AVM, CAD S/P Stent Placement presents to ED for evaluation. Patient reports " I do not feel well". Patient states that he has experienced abdominal discomfort, nausea, multiple episodes of vomiting, abdominal discomfort over the past 2 days with persistent symptoms over the same timeframe. EMS was notified and upon arrival the patient was found to be in distress and subsequently transported to [facility] for further care and evaluation of the aforementioned symptoms. The patient was seen and evaluated in the emergency department. All lab and imaging studies reviewed. Patient underwent CT scan of the abdomen and pelvis which did not reveal any acute findings. CT scan of the brain revealed hypoattenuation in the anterior corpus callosum which is suggestive of intracranial hemorrhage. Patient mated to [facility] for further care and evaluation. Neurosurgery team consulted. Patient denies fever, chills, chest pain, palpitation, productive cough, skin rash, recent ill contacts, or known exposure to COVID-19. Prior admission on 10/26/2017 reviewed. All medication listed at time of admission has been reconciled. Advanced care planning conducted in ED. According to pt. 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 denies: smoking, alcohol abuse, prescription drug abuse Family history: denies: diabetes, hypertension Medications and Allergies Allergies Allergy/AdvReac Type Severity Reaction Status Date / Time shrimp Allergy Nausea Verified 09/09/20 16:36 Home Medications Medication Instructions Recorded Confirmed Last Taken Type Omeprazole 40 mg PO QDAY 03/17/21 03/17/21 Unknown History Tamsulosin [Flomax] 0.4 mg PO QDAY 03/17/21 03/17/21 Unknown History Review of Systems Constitutional: no weight loss, no fever, no chills, no sweats, no night sweats Ears, nose, mouth and throat: no ear pain, no ear discharge, no tinnitis, no nose pain, no nasal congestion, no nasal discharge Cardiovascular: no chest pain, no edema, no syncope Respiratory: no cough, no cough with sputum, no excessive sputum, no hemoptysis Gastrointestinal: nausea, vomiting, no constipation, no hematemesis, no loss of appetite Genitourinary Male: no hematuria, no flank pain, no discharge, no urinary frequency, no urinary hesitancy Rectal: no pain, no incontinence, no bleeding Musculoskeletal: no neck stiffness, no neck pain, no arm numbness/tingling, no low back pain, no shooting leg pain, no leg numbness/tingling Integumentary: no rash, no redness, no sores, no jaundice Neurological: no head injury, no parathesias, no numbness Psychiatric: no anxiety, no memory loss, no change in libido Endocrine: no cold intolerance, no heat intolerance, no excessive thirst, no polydipsia, no polyuria Hematologic/Lymphatic: no easy bruising, no easy bleeding, no lymphadenopathy Allergic/Immunologic: no urticaria, no wheezing, no persistent infections, no anaphylaxis Past History Past Medical History: acute NE, CAD, hypertension, other (See HPI) Past Surgical History: No surgical history, Other (Nasal septal repair) Social history: single. denies: smoking, alcohol abuse, prescription drug abuse Family history: denies: diabetes, hypertension Medications and Allergies Allergies Allergy/AdvReac Type Severity Reaction Status Date / Time shrimp Allergy Nausea Verified 09/09/20 16:36 Home Medications Medication Instructions Recorded Confirmed Last Taken Type Omeprazole 40 mg PO QDAY 03/17/21 03/17/21 Unknown History Tamsulosin [Flomax] 0.4 mg PO QDAY 03/17/21 03/17/21 Unknown History Active Meds: Active Medications Acetaminophen (Acetaminophen 325 Mg Tab) 650 mg PO Q4H PRN PRN Reason: Pain, Mild (1-3) Acetaminophen (Acetaminophen 650 Mg Rect Supp) 650 mg [place] Q4H PRN PRN Reason: Pain, Mild (1-3) Hydrocodone Bitart/Acetaminophen (Hydrocodone/Acetaminophen 5-325 Mg Tab) 1 each PO Q6HR PRN PRN Reason: Pain, Moderate (4-6) Al Hydrox/Mg Hydrox/Simethicone (Alum-Mag Hydroxide-Simethicone [phone]/5ml Oral Liqd 30 Ml) 30 ml PO Q4H PRN PRN Reason: Indigestion Bisacodyl (Bisacodyl 10 Mg Rect Supp) 10 mg [place] QDAY PRN PRN Reason: Constipation unrelieved by MOM Magnesium Hydroxide (Magnesium Hydroxide (Mom) Oral Liqd Udc) 30 ml PO Q4H PRN PRN Reason: Constipation Ondansetron HCl (Ondansetron 4 Mg/2 Ml Inj) 4 mg IV Q8H PRN PRN Reason: N/V unrelieved by Reglan Ondansetron HCl (Ondansetron 4 Mg Odt Tab) 4 mg PO Q8HR PRN PRN Reason: Nausea And Vomiting Pantoprazole Sodium (Pantoprazole 40 Mg Tab) 40 mg PO DAILY [facility] Last Admin: 03/18/21 11:40 Dose: 40 mg Documented by: Promethazine HCl (Promethazine 25 Mg Rect Supp) 25 mg [place] Q6H PRN PRN Reason: Nausea And Vomiting Sucralfate (Sucralfate 1 Gm/10 Ml Oral Liqd) 1 gm PO Q6HR [facility] Last Admin: 03/18/21 11:40 Dose: 1 gm Documented by: Physical Examination - Vital Signs Vital Signs: Vital Signs Temp Pulse Resp BP Pulse Ox 97.8 F 98 H 18 190/96 99 03/17/21 09:37 03/17/21 09:37 03/17/21 09:37 03/17/21 09:37 03/17/21 09:37 - Constitutional General appearance: other (in mild distress complain of abdominal pain and unsteadiness nausea ) - EENT EENT: Present: PERRL, mucous membranes moist - Respiratory Respiratory: Present: lungs clear, rhonchi - Cardiovascular Cardiovascular: Present: regular rate, normal S1, normal S2 Extremities: Present: no peripheral edema bilatateraly - Gastrointestinal Gastrointestinal: Present: normoactive bowel sounds - Integumentary Integumentary: Present: normal - Neurologic Cranial nerve examination: PERRL, EOMI, intact Speech examination: intact Sensorimotor examination: intact Detailed motor examination: grossly full strength in Detailed sensory examination: intact Reflex and gait examination: intact Cerebellar examination: other (gait is not done) Results - Laboratory Findings CBC and BMP: 03/17/21 10:40 03/17/21 10:40 Abnormal Lab Findings: Abnormal Labs 03/17/21 03/17/21 03/17/21 10:40 10:40 Unknown MCHC 35 H RDW 15.6 H Baso % (Auto) 2.7 H Lymph # (Auto) 0.8 L Seg Neutrophils % 75.6 H BUN 7 L Glucose 64 L Calcium 6.1 L Ur Specific [place] 1.044 H Assessment and Plan Assessment and Plan - Patient Problems # ICH as per Ct report -MRI showed no sign of hemorrhage -CTA brain and neck is unremarkable -remote CVA in left corpus callosum and left hemorrhagic occipital infarct he is with blurred vision -hx of HTN with poor compliance with medication -chronic intake of marihjuana -Neurosurgery consulted, -CT scan head is noted, -supportive care, -continue medical management as per neurosurgery recommendations. -CAN RESTART asa 81 MG DAILY IF gi CLEARED -CHECK LIPID PROFIL -lPITOR 40 MG DAILY # PUD (peptic ulcer disease) -PI therapy, supportive care, outpatient GI follow-up for further care. -#HTN (hypertension) -Monitor blood pressure every shift, continue medical management. #DVT prophylaxis -SCDs bilateral lower extremities while in bed, -asa 81 MG CAN BE RESTARTED ONCE GI CLEARED # Advance care planning -Disease education conducted, care plan discussed, diagnosis discussed, patient is full code, patient knowledges understanding and agreement with care plan, +30 minutes. WILL FOLLOW NEEDED
--- NOTE | 2021-03-18 16:06 | Magnetic Resonance Report ---
MRI BRAIN WITHOUT AND WITH CONTRAST INDICATION / CLINICAL INFORMATION: MAIN. Stroke TECHNIQUE: Multisequence, multiplanar images were obtained. Postcontrast imaging following 18 cc of MultiHance i ntravenously. COMPARISON: CT head 03/17/2021 FINDINGS: CEREBRAL and CEREBELLAR HEMISPHERES: Mild nonspecific T2 signal abnormalities are noted in the white matter bilaterally consistent with chronic small vessel disease. There is an approximate 1 cm focus o f decreased signal on the gradient images and hemosiderin deposition on the T2 images in the left occ ipital lobe consistent with a chronic focal hemorrhage. This is best demonstrated on axial gradient a nd T2 images 15. The previously described focal area of hyperattenuation in the left anterior body of the corpus callosum seen on recent CT appears to represent a focal chronic infarct on MRI . No evide nce for abnormal enhancement. No midline shift. No acute hemorrhage. No diffusion restriction to s uggest acute infarct. No extra-axial fluid collection. VENTRICLES: Normal in size and configuration for age. VISUALIZED ORBITS: No significant abnormality. VISUALIZED PARANASAL SINUSES: No significant abnormality. ADDITIONAL FINDINGS: None. IMPRESSION: No acute intracranial process or abnormal enhancement. Mild chronic small vessel disease in the white matter. Focal chronic infarct in the left anterior corpus callosum. A chronic focal hemorrhagic infarct is focal in the left occipital lobe as described. The clinical si gnificance of this is unclear. Signer Name: Kevin Coronel Jr, MD Signed: 03/18/2021 4:01 PM Workstation Name: [id number]
--- NOTE | 2021-03-18 17:03 | Cat Scan Report ---
CT angio neck, CT angio head HISTORY: cva COMPARISON: CT head from March 17 2021. MRI brain from same day. TECHNIQUE: CTA of the neck and head is performed after IV contrast. 3-D/MIP reformats were postproces sed. Percentage stenosis is determined by direct quantitative measurements of diseased internal quiles tid artery diameter compared with normal distal internal carotid artery reference segments or by crit eria similar to NASCET where applicable. All CT scans at this location are performed using CT dose re duction for ALARA by means of automated exposure control. FINDINGS: CTA NECK: Aortic arch: No significant abnormality. Cervical vertebral arteries: No occlusion or hemodynamically significant stenosis. Common Carotid arteries: No occlusion or hemodynamically significant stenosis. Internal carotid arteries: Motion degrades image quality of the carotid bulbs and proximal internal c arotid arteries. However, there is no occlusion or hemodynamically significant stenosis. CTA HEAD: Intracranial internal carotid arteries: No occlusion or significant stenosis. Anterior cerebral arteries: No occlusion or significant stenosis. Middle cerebral arteries: No occlusion or significant stenosis. Intracranial vertebral arteries: No occlusion or significant stenosis. Basilar artery: No occlusion or significant stenosis. Posterior cerebral arteries: No occlusion or significant stenosis. No aneurysm. Additional findings: None. IMPRESSION: 1. CTA NECK: No occlusion or significant stenosis of the carotid or vertebral arteries. 2. CTA HEAD: No occlusion or significant stenosis of the major intracranial vasculature. Signer Name: Danielito Meeks MD Signed: 03/18/2021 4:59 PM Workstation Name: [id number]
[2021-03-19] MEDS: SUCRALFATE 1 GM/10 ML ORAL LIQD PO SCH ×3 (06:13→18:25)
--- NOTE | 2021-03-19 08:08 | Consultation ---
History of Present Illness Consult date: 03/18/21 Reason for Consult: Suspect intracerebral hemorrhage Chief complaint: abdominal discomfort History of present illness: Graeme Browning is a 75 y/o Male that presented to [facility] for evaluation of abdominal discomfort. He reported lower abdominal discomfort for the past few days. He underwent CT CAP that was negative for acute findings. He also had a CT head performed, which revealed a hyperdensity involving the anterior corpus callosum. Follow up MRI brain revealed evidence of a chronic infarct without acute finding. CTA head and neck are negative for any occlusion or critical stenosis. Past History Past Medical History: acute [place], CAD, hypertension, other (See HPI) Past Surgical History: No surgical history, Other (Nasal septal repair) Social history: single. denies: smoking, alcohol abuse, prescription drug abuse Family history: denies: diabetes, hypertension Medications and Allergies Allergies Allergy/AdvReac Type Severity Reaction Status Date / Time shrimp Allergy Nausea Verified 09/09/20 16:36 Home Medications Medication Instructions Recorded Confirmed Last Taken Type Omeprazole 40 mg PO QDAY 03/17/21 03/17/21 Unknown History Tamsulosin [Flomax] 0.4 mg PO QDAY 03/17/21 03/17/21 Unknown History Active Meds: Active Medications Acetaminophen (Acetaminophen 325 Mg Tab) 650 mg PO Q4H PRN PRN Reason: Pain, Mild (1-3) Acetaminophen (Acetaminophen 650 Mg Rect Supp) 650 mg HI Q4H PRN PRN Reason: Pain, Mild (1-3) Hydrocodone Bitart/Acetaminophen (Hydrocodone/Acetaminophen 5-325 Mg Tab) 1 each PO Q6HR PRN PRN Reason: Pain, Moderate (4-6) Al Hydrox/Mg Hydrox/Simethicone (Alum-Mag Hydroxide-Simethicone [id number]/5ml Oral Liqd 30 Ml) 30 ml PO Q4H PRN PRN Reason: Indigestion Bisacodyl (Bisacodyl 10 Mg Rect Supp) 10 mg HI QDAY PRN PRN Reason: Constipation unrelieved by MOM Magnesium Hydroxide (Magnesium Hydroxide (Mom) Oral Liqd Udc) 30 ml PO Q4H PRN PRN Reason: Constipation Ondansetron HCl (Ondansetron 4 Mg/2 Ml Inj) 4 mg IV Q8H PRN PRN Reason: N/V unrelieved by Ubaldo Ondansetron HCl (Ondansetron 4 Mg Odt Tab) 4 mg PO Q8HR PRN PRN Reason: Nausea And Vomiting Pantoprazole Sodium (Pantoprazole 40 Mg Tab) 40 mg PO DAILY [facility] Last Admin: 03/18/21 11:40 Dose: 40 mg Documented by: Promethazine HCl (Promethazine 25 Mg Rect Supp) 25 mg HI Q6H PRN PRN Reason: Nausea And Vomiting Sucralfate (Sucralfate 1 Gm/10 Ml Oral Liqd) 1 gm PO Q6HR [facility] Last Admin: 03/19/21 06:13 Dose: 1 gm Documented by: Review of Systems All systems: negative (what is indicated in HPI) Physical Examination - Vital Signs Vital Signs: Vital Signs Temp Pulse Resp BP Pulse Ox 97.8 F 98 H 18 190/96 99 03/17/21 09:37 03/17/21 09:37 03/17/21 09:37 03/17/21 09:37 03/17/21 09:37 - Physical Exam Narrative exam: seen and examined no acute distress NC/AT RRR breathing non-labored abdomen soft no cyanosis or clubbing A&Ox3 CNII-XII intact motor strength full throughout sensation intact reflexes +2 Results - Laboratory Findings CBC and BMP: 03/17/21 10:40 03/17/21 10:40 Abnormal Lab Findings: Abnormal Labs 03/17/21 03/17/21 03/17/21 10:40 10:40 Unknown MCHC 35 H RDW 15.6 H Baso % (Auto) 2.7 H Lymph # (Auto) 0.8 L Seg Neutrophils % 75.6 H BUN 7 L Glucose 64 L POC Glucose Calcium 6.1 L Ur Specific [place] 1.044 H 03/18/21 22:47 MCHC RDW Baso % (Auto) Lymph # (Auto) Seg Neutrophils % BUN Glucose POC Glucose 153 H Calcium Ur Specific [place] Assessment and Plan 75 y/o Male w/ abdominal discomfort, incidentally discovered remote anterior callosum infarct -no further NSGY intervention is recommended at this writing -defer to Neurology for further management -please notify if questions
[2021-03-19] MEDS: PANTOPRAZOLE 40 MG TAB PO SCH (09:07)
[2021-03-19] MEDS: HYDROcodone/ACETAMINOPHEN 5-325 MG TAB PO PRN ×2 (09:07→14:08)
[2021-03-19] MEDS: ONDANSETRON 4 MG/2 ML INJ IV PRN (11:14)
[2021-03-19] MEDS: ALUM-MAG HYDROXIDE-SIMETHICONE 200-200-20MG/5ML ORAL LIQD 30 ML PO PRN (14:08)
--- NOTE | 2021-03-19 15:43 | Progress Note ---
Assessment and Plan Assessment and plan: 75 YO Male with HTN, [place], PUD, AVM, CAD S/P Stent Placement presents to ED for evaluation. Patient reports " I do not feel well". Patient states that he has experienced abdominal discomfort, nausea, multiple episodes of vomiting, abdominal discomfort over the past 2 days with persistent symptoms over the same timeframe. EMS was notified and upon arrival the patient was found to be in distress and subsequently transported to [facility] for further care and evaluation of the aforementioned symptoms. The patient was seen and evaluated in the emergency department. All lab and imaging studies reviewed. Patient underwent CT scan of the abdomen and pelvis which did not reveal any acute findings. CT scan of the brain revealed hypoattenuation in the anterior corpus callosum which is consistent with intracranial hemorrhage. Patient mated to [facility] for further care and evaluation. Neurosurgery team consulted. Patient denies fever, chills, chest pain, palpitation, productive cough, skin rash, recent ill contacts, or known exposure to COVID-19. Prior admission on 10/26/2017 reviewed. All medication listed at time of admission has been reconciled. Advanced care planning conducted in ED. 03/18: From review of records and also review of imaging studies I did notice that the ER physician documented neurosurgery wanted an MRI both with and without contrast of the brain will proceed to ordering this. Patient reports mild improvement in symptoms although still with some lightheadedness and dizziness disequilibrium could not be fully evaluated at this time. He makes it known that he is abdominal pain has been ongoing for years and he currently had a colonoscopy and is currently under the care of automobile or truck rental dispatcher although do not know the name of the automobile or truck rental dispatcher. Patient continues to await neurosurgery will go ahead and consult neurologist in the meantime while pending the MRI studies. 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 , supportive care, continue medical management as per neuro recommendations. PUD (peptic ulcer disease) PPI therapy, supportive care, outpatient GI follow-up for further care. Abdominal pain Patient complains of severe abdominal pain. Says he saw a Doctor from [facility] and had colonoscopy recently Will consult Dr. Cramer HTN (hypertension) Monitor blood pressure every shift, continue medical management. DVT prophylaxis SCDs bilateral lower extremities while in bed, hold anticoagulation due to intracranial hemorrhage. Advance care planning Disease education conducted, care plan discussed, diagnosis discussed, patient is full code, patient knowledges understanding and agreement with care plan, +30 minutes. Plan of care discussed in detail with the patient History Interval history: Abdominal pain nausea and Vomiting Patient requesting to see a GI Specialist Hospitalist Physical - Physical exam Narrative exam: GENERAL: Not in acute distress. HEAD: Normocephalic. EYES: Pupils are equal. Extraocular motions intact. Mild vertical nystagmus EARS: Hearing grossly intact. MOUTH: Oropharynx is normal. NECK: No adenopathy, no JVD. CHEST: Chest with clear breath sounds bilaterally. No wheezes, rales, or rho nchi. CARDIAC: Regular rate and rhythm. S1 and S2 reg, no murmurs, gallops, or rubs. VASCULAR: No Edema. Peripheral pulses normal and equal in all extremities. ABDOMEN: Soft, tender mid abdomen, no rebound tenderness. Bowel Sounds normal. MUSCULOSKELETAL: Good range of motion of all major joints. Extremities without clubbing, cyanosis or edema. NEUROLOGIC EXAM: AAO x 3, Speech normal. Follows commands. - Constitutional Vitals: Temp Pulse Resp BP Pulse Ox 98.1 F 68 18 128/74 97 03/19/21 11:00 03/19/21 14:21 03/19/21 14:21 03/19/21 14:21 03/19/21 14:21 General appearance: Present: mild distress Results - Labs CBC & Chem 7: 03/17/21 10:40 03/17/21 10:40 Labs: Laboratory Last Values WBC 4.8 K/mm3 (4.5-11.0) 03/17/21 10:40 RBC 4.80 M/mm3 (3.65-5.03) 03/17/21 10:40 Hgb 14.5 gm/dl (11.8-15.2) 03/17/21 10:40 Hct 41.6 % (35.5-45.6) 03/17/21 10:40 MCV 87 fl (84-94) 03/17/21 10:40 MCH 30 pg (28-32) 03/17/21 10:40 MCHC 35 % (32-34) H 03/17/21 10:40 RDW 15.6 % (13.2-15.2) H 03/17/21 10:40 Plt Count 263 K/mm3 (140-440) 03/17/21 10:40 Lymph % (Auto) 17.6 % (13.4-35.0) 03/17/21 10:40 [place] % (Auto) 3.4 % (0.0-7.3) 03/17/21 10:40 Eos % (Auto) 0.7 % (0.0-4.3) 03/17/21 10:40 Baso % (Auto) 2.7 % (0.0-1.8) H 03/17/21 10:40 Lymph # (Auto) 0.8 K/mm3 (1.2-5.4) L 03/17/21 10:40 [place] # (Auto) 0.2 K/mm3 (0.0-0.8) 03/17/21 10:40 Eos # (Auto) 0.0 K/mm3 (0.0-0.4) 03/17/21 10:40 Baso # (Auto) 0.1 K/mm3 (0.0-0.1) 03/17/21 10:40 Seg Neutrophils % 75.6 % (40.0-70.0) H 03/17/21 10:40 Seg Neutrophils # 3.6 K/mm3 (1.8-7.7) 03/17/21 10:40 Sodium 138 mmol/L (137-145) 03/17/21 10:40 Potassium 3.7 mmol/L (3.6-5.0) 03/17/21 10:40 Chloride 100.7 mmol/L (98-107) 03/17/21 10:40 Carbon Dioxide 22 mmol/L (22-30) 03/17/21 10:40 Anion Gap 19 mmol/L 03/17/21 10:40 BUN 7 mg/dL (9-20) L 03/17/21 10:40 Creatinine 0.9 mg/dL (0.8-1.3) 03/17/21 10:40 Estimated GFR > 60 ml/min 03/17/21 10:40 BUN/Creatinine Ratio 8 % 03/17/21 10:40 Glucose 64 mg/dL (75-100) L 03/17/21 10:40 POC Glucose 153 mg/dL (70-105) H 03/18/21 22:47 Calcium 6.1 mg/dL (8.4-10.2) L 03/17/21 10:40 Total Bilirubin 0.30 mg/dL (0.1-1.2) 03/17/21 10:40 AST 22 units/L (5-40) 03/17/21 10:40 ALT 22 units/L (7-56) 03/17/21 10:40 Alkaline Phosphatase 73 units/L (35-129) 03/17/21 10:40 Total Protein 6.4 g/dL (6.3-8.2) 03/17/21 10:40 Albumin 3.9 g/dL (3.9-5) 03/17/21 10:40 Albumin/Globulin Ratio 1.6 % 03/17/21 10:40 Triglycerides 67 mg/dL (2-149) 03/18/21 05:12 Cholesterol 168 mg/dL (50-199) 03/18/21 05:12 LDL Cholesterol Direct 130 mg/dL (50-130) 03/18/21 05:12 HDL Cholesterol 42 mg/dL (40-59) 03/18/21 05:12 Cholesterol/HDL Ratio 4.00 % 03/18/21 05:12 Lipase 26 units/L (13-60) 03/17/21 10:40 Urine Color Yellow (Yellow) 03/17/21 Unknown Urine Turbidity Clear (Clear) 03/17/21 Unknown Urine pH 7.0 (5.0-7.0) 03/17/21 Unknown Ur Specific [place] 1.044 (1.003-1.030) H 03/17/21 Unknown Urine Protein <15 mg/dl mg/dL (Negative) 03/17/21 Unknown Urine Glucose (UA) Neg mg/dL (Negative) 03/17/21 Unknown Urine Ketones Tr mg/dL (Negative) 03/17/21 Unknown Urine Blood Neg (Negative) 03/17/21 Unknown Urine Nitrite Neg (Negative) 03/17/21 Unknown Urine Bilirubin Neg (Negative) 03/17/21 Unknown Urine Urobilinogen 2.0 mg/dL (<2.0) 03/17/21 Unknown Ur Leukocyte Esterase Neg (Negative) 03/17/21 Unknown Urine WBC (Auto) 1.0 /HPF (0.0-6.0) 03/17/21 Unknown Urine RBC (Auto) 1.0 /HPF (0.0-6.0) 03/17/21 Unknown U Epithel Cells (Auto) < 1.0 /HPF (0-13.0) 03/17/21 Unknown Urine Mucus Few /HPF 03/17/21 Unknown Roe/IV: Voiding Method Urinal Active Medications - Current Medications Current Medications: Generic Name Dose Route Start Last Admin Trade Name Freq PRN Reason Stop Dose Admin Acetaminophen 650 mg 03/17/21 17:09 Acetaminophen 325 Mg Tab PO Q4H PRN Pain, Mild (1-3) Acetaminophen 650 mg 03/17/21 17:09 Acetaminophen 650 Mg Rect Supp [place] Q4H PRN Pain, Mild (1-3) Hydrocodone Bitart/Acetaminophen 1 each 03/17/21 17:12 03/19/21 14:08 Hydrocodone/Acetaminophen 5-325 Mg Tab PO 1 each Q6HR PRN Administration Pain, Moderate (4-6) Al Hydrox/Mg Hydrox/Simethicone 30 ml 03/17/21 17:09 03/19/21 14:08 Alum-Mag Hydroxide-Simethicone [phone]/5ml Oral Liqd 30 Ml PO 30 ml Q4H PRN Administration Indigestion Bisacodyl 10 mg 03/17/21 17:09 Bisacodyl 10 Mg Rect Supp [place] QDAY PRN Constipation unrelieved by MOM Magnesium Hydroxide 30 ml 03/17/21 17:09 Magnesium Hydroxide (Mom) Oral Liqd Udc PO Q4H PRN Constipation Ondansetron HCl 4 mg 03/17/21 17:09 03/19/21 11:14 Ondansetron 4 Mg/2 Ml Inj IV 4 mg Q8H PRN Administration N/V unrelieved by Reglan Ondansetron HCl 4 mg 03/17/21 17:12 Ondansetron 4 Mg Odt Tab PO Q8HR PRN Nausea And Vomiting Pantoprazole Sodium 40 mg 03/17/21 18:00 03/19/21 09:07 Pantoprazole 40 Mg Tab PO 40 mg DAILY DANIS Administration Promethazine HCl 25 mg 03/17/21 17:09 Promethazine 25 Mg Rect Supp [place] Q6H PRN Nausea And Vomiting Sucralfate 1 gm 03/17/21 18:00 03/19/21 11:14 Sucralfate 1 Gm/10 Ml Oral Liqd PO 1 gm Q6HR DANIS Administration
[2021-03-20] MEDS: SUCRALFATE 1 GM/10 ML ORAL LIQD PO SCH ×5 (00:28→23:20)
[2021-03-20] MEDS: ONDANSETRON 4 MG/2 ML INJ IV PRN ×4 (00:30→23:08)
[2021-03-20] MEDS: ALUM-MAG HYDROXIDE-SIMETHICONE 200-200-20MG/5ML ORAL LIQD 30 ML PO PRN (00:30)
[2021-03-20] MEDS: HYDROcodone/ACETAMINOPHEN 5-325 MG TAB PO PRN (00:30)
--- NOTE | 2021-03-20 08:55 | Progress Note ---
Assessment and Plan Assessment and plan: 75 YO Male with HTN, [place], PUD, AVM, CAD S/P Stent Placement presents to ED for evaluation. Patient reports " I do not feel well". Patient states that he has experienced abdominal discomfort, nausea, multiple episodes of vomiting, abdominal discomfort over the past 2 days with persistent symptoms over the same timeframe. EMS was notified and upon arrival the patient was found to be in distress and subsequently transported to [facility] for further care and evaluation of the aforementioned symptoms. The patient was seen and evaluated in the emergency department. All lab and imaging studies reviewed. Patient underwent CT scan of the abdomen and pelvis which did not reveal any acute findings. CT scan of the brain revealed hypoattenuation in the anterior corpus callosum which is consistent with intracranial hemorrhage. Patient mated to [facility] for further care and evaluation. Neurosurgery team consulted. Patient denies fever, chills, chest pain, palpitation, productive cough, skin rash, recent ill contacts, or known exposure to COVID-19. Prior admission on 10/26/2017 reviewed. All medication listed at time of admission has been reconciled. Advanced care planning conducted in ED. 03/18: From review of records and also review of imaging studies I did notice that the ER physician documented neurosurgery wanted an MRI both with and without contrast of the brain will proceed to ordering this. Patient reports mild improvement in symptoms although still with some lightheadedness and dizziness disequilibrium could not be fully evaluated at this time. He makes it known that he is abdominal pain has been ongoing for years and he currently had a colonoscopy and is currently under the care of production support specialist although do not know the name of the production support specialist. Patient continues to await neurosurgery will go ahead and consult neurologist in the meantime while pending the MRI studies. 03/19 Abdominal pain Patient complains of severe abdominal pain. Says he saw a Doctor from [facility] and had colonoscopy recently Will consult Dr. Cramer 03/20 Called by Nurse that patient has elevated BP 177/99, dizzy, abdominal pain. Will order stat repeat CT head. 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 , supportive care, continue medical management as per neuro recommendations. PUD (peptic ulcer disease) PPI therapy, supportive care, outpatient GI follow-up for further care. Abdominal pain Patient complains of severe abdominal pain. Says he saw a Doctor from [facility] and had colonoscopy recently Will consult Dr. Cramer HTN (hypertension) Monitor blood pressure every shift, continue medical management. DVT prophylaxis SCDs bilateral lower extremities while in bed, hold anticoagulation due to intracranial hemorrhage. Advance care planning Disease education conducted, care plan discussed, diagnosis discussed, patient is full code, patient knowledges understanding and agreement with care plan, +30 minutes. Plan of care discussed in detail with the patient History Interval history: Dizziness Abdominal pain nausea and Vomiting Patient requested to see a GI Specialist yesterday, consulted Hospitalist Physical - Physical exam Narrative exam: GENERAL: In mild distress from dizziness, abdominal pain. HEAD: Normocephalic. EARS: Hearing grossly intact. MOUTH: Oropharynx is normal. NECK: No adenopathy, no JVD. CHEST: Chest with clear breath sounds bilaterally. No wheezes, rales, or rhonchi. CARDIAC: Regular rate and rhythm. S1 and S2 reg, no murmurs, gallops, or rubs. VASCULAR: No Edema. Peripheral pulses normal and equal in all extremities. ABDOMEN: Soft, tender mid abdomen, no rebound tenderness. Bowel Sounds normal. MUSCULOSKELETAL: Good range of motion of all major joints. Extremities without clubbing, cyanosis or edema. NEUROLOGIC EXAM: AAO x 3, Speech normal. Follows commands. - Constitutional Vitals: Temp Pulse Resp BP Pulse Ox 98.1 F 70 13 136/87 96 03/20/21 07:00 03/20/21 08:00 03/20/21 08:00 03/20/21 08:00 03/20/21 08:00 Results - Labs CBC & Chem 7: 03/17/21 10:40 03/17/21 10:40 Labs: Laboratory Last Values WBC 4.8 K/mm3 (4.5-11.0) 03/17/21 10:40 RBC 4.80 M/mm3 (3.65-5.03) 03/17/21 10:40 Hgb 14.5 gm/dl (11.8-15.2) 03/17/21 10:40 Hct 41.6 % (35.5-45.6) 03/17/21 10:40 MCV 87 fl (84-94) 03/17/21 10:40 MCH 30 pg (28-32) 03/17/21 10:40 MCHC 35 % (32-34) H 03/17/21 10:40 RDW 15.6 % (13.2-15.2) H 03/17/21 10:40 Plt Count 263 K/mm3 (140-440) 03/17/21 10:40 Lymph % (Auto) 17.6 % (13.4-35.0) 03/17/21 10:40 [place] % (Auto) 3.4 % (0.0-7.3) 03/17/21 10:40 Eos % (Auto) 0.7 % (0.0-4.3) 03/17/21 10:40 Baso % (Auto) 2.7 % (0.0-1.8) H 03/17/21 10:40 Lymph # (Auto) 0.8 K/mm3 (1.2-5.4) L 03/17/21 10:40 [place] # (Auto) 0.2 K/mm3 (0.0-0.8) 03/17/21 10:40 Eos # (Auto) 0.0 K/mm3 (0.0-0.4) 03/17/21 10:40 Baso # (Auto) 0.1 K/mm3 (0.0-0.1) 03/17/21 10:40 Seg Neutrophils % 75.6 % (40.0-70.0) H 03/17/21 10:40 Seg Neutrophils # 3.6 K/mm3 (1.8-7.7) 03/17/21 10:40 Sodium 138 mmol/L (137-145) 03/17/21 10:40 Potassium 3.7 mmol/L (3.6-5.0) 03/17/21 10:40 Chloride 100.7 mmol/L (98-107) 03/17/21 10:40 Carbon Dioxide 22 mmol/L (22-30) 03/17/21 10:40 Anion Gap 19 mmol/L 03/17/21 10:40 BUN 7 mg/dL (9-20) L 03/17/21 10:40 Creatinine 0.9 mg/dL (0.8-1.3) 03/17/21 10:40 Estimated GFR > 60 ml/min 03/17/21 10:40 BUN/Creatinine Ratio 8 % 03/17/21 10:40 Glucose 64 mg/dL (75-100) L 03/17/21 10:40 POC Glucose 153 mg/dL (70-105) H 03/18/21 22:47 Calcium 6.1 mg/dL (8.4-10.2) L 03/17/21 10:40 Total Bilirubin 0.30 mg/dL (0.1-1.2) 03/17/21 10:40 AST 22 units/L (5-40) 03/17/21 10:40 ALT 22 units/L (7-56) 03/17/21 10:40 Alkaline Phosphatase 73 units/L (35-129) 03/17/21 10:40 Total Protein 6.4 g/dL (6.3-8.2) 03/17/21 10:40 Albumin 3.9 g/dL (3.9-5) 03/17/21 10:40 Albumin/Globulin Ratio 1.6 % 03/17/21 10:40 Triglycerides 67 mg/dL (2-149) 03/18/21 05:12 Cholesterol 168 mg/dL (50-199) 03/18/21 05:12 LDL Cholesterol Direct 130 mg/dL (50-130) 03/18/21 05:12 HDL Cholesterol 42 mg/dL (40-59) 03/18/21 05:12 Cholesterol/HDL Ratio 4.00 % 03/18/21 05:12 Lipase 26 units/L (13-60) 03/17/21 10:40 Urine Color Yellow (Yellow) 03/17/21 Unknown Urine Turbidity Clear (Clear) 03/17/21 Unknown Urine pH 7.0 (5.0-7.0) 03/17/21 Unknown Ur Specific [place] 1.044 (1.003-1.030) H 03/17/21 Unknown Urine Protein <15 mg/dl mg/dL (Negative) 03/17/21 Unknown Urine Glucose (UA) Neg mg/dL (Negative) 03/17/21 Unknown Urine Ketones Tr mg/dL (Negative) 03/17/21 Unknown Urine Blood Neg (Negative) 03/17/21 Unknown Urine Nitrite Neg (Negative) 03/17/21 Unknown Urine Bilirubin Neg (Negative) 03/17/21 Unknown Urine Urobilinogen 2.0 mg/dL (<2.0) 03/17/21 Unknown Ur Leukocyte Esterase Neg (Negative) 03/17/21 Unknown Urine WBC (Auto) 1.0 /HPF (0.0-6.0) 03/17/21 Unknown Urine RBC (Auto) 1.0 /HPF (0.0-6.0) 03/17/21 Unknown U Epithel Cells (Auto) < 1.0 /HPF (0-13.0) 03/17/21 Unknown Urine Mucus Few /HPF 03/17/21 Unknown Roe/IV: Voiding Method Urinal Active Medications - Current Medications Current Medications: Generic Name Dose Route Start Last Admin Trade Name Freq PRN Reason Stop Dose Admin Acetaminophen 650 mg 03/17/21 17:09 Acetaminophen 325 Mg Tab PO Q4H PRN Pain, Mild (1-3) Acetaminophen 650 mg 03/17/21 17:09 Acetaminophen 650 Mg Rect Supp [place] Q4H PRN Pain, Mild (1-3) Hydrocodone Bitart/Acetaminophen 1 each 03/17/21 17:12 03/20/21 00:30 Hydrocodone/Acetaminophen 5-325 Mg Tab PO 1 each Q6HR PRN Administration Pain, Moderate (4-6) Al Hydrox/Mg Hydrox/Simethicone 30 ml 03/17/21 17:09 03/20/21 00:30 Alum-Mag Hydroxide-Simethicone [id number]/5ml Oral Liqd 30 Ml PO 30 ml Q4H PRN Administration Indigestion Bisacodyl 10 mg 03/17/21 17:09 Bisacodyl 10 Mg Rect Supp [place] QDAY PRN Constipation unrelieved by MOM Hydralazine HCl 10 mg 03/20/21 08:49 Hydralazine 20 Mg/1 Ml Inj IV Q4HR PRN If SBP>160 or DBP >110 Magnesium Hydroxide 30 ml 03/17/21 17:09 Magnesium Hydroxide (Mom) Oral Liqd Udc PO Q4H PRN Constipation Morphine Sulfate 2 mg 03/20/21 08:52 Morphine 2 Mg/1 Ml Inj IV Q4H PRN Pain, Moderate (4-6) Ondansetron HCl 4 mg 03/17/21 17:09 03/20/21 08:37 Ondansetron 4 Mg/2 Ml Inj IV 4 mg Q8H PRN Administration N/V unrelieved by Regamy Ondansetron HCl 4 mg 03/17/21 17:12 Ondansetron 4 Mg Odt Tab PO Q8HR PRN Nausea And Vomiting Pantoprazole Sodium 40 mg 03/17/21 18:00 03/19/21 09:07 Pantoprazole 40 Mg Tab PO 40 mg DAILY DANIS Administration Promethazine HCl 25 mg 03/17/21 17:09 Promethazine 25 Mg Rect Supp [place] Q6H PRN Nausea And Vomiting Sucralfate 1 gm 03/17/21 18:00 03/20/21 06:32 Sucralfate 1 Gm/10 Ml Oral Liqd PO 1 gm Q6HR DANIS Administration
[2021-03-20] MEDS: MORPHINE 2 MG/1 ML INJ IV PRN ×2 (09:05→23:08)
[2021-03-20] MEDS: PANTOPRAZOLE 40 MG TAB PO SCH (09:37)
--- NOTE | 2021-03-20 09:57 | Electrocardiograph Report ---
[facility] Test Date: 2021-03-18 Test Time: 21:08:59 Pat Name: KARRI MA Department: Room: A265 1 Gender: M Automatic Operator: ANDREW : 1945 Requested By: LAVONNE LR Order Number: [id number] Reading MD: Noah West Measurements Intervals [place] Rate: 52 P: 45 VT: 163 QRS: 56 QRSD: 84 T: 57 QT: 424 QTc: 393 Interpretive Statements Sinus bradycardia Probable left atrial enlargement Borderline ST elevation, anterior leads No previous ECG available for comparison Electronically Signed On 03-20-2021 9:57:27 EDT by Noah West
[2021-03-20] MEDS ORDERED: hydrALAZINE 20 MG/1 ML INJ IV PRN (10:00)
--- NOTE | 2021-03-20 10:14 | Cat Scan Report ---
CT HEAD WITHOUT CONTRAST INDICATION : Dizziness. TECHNIQUE: Axial imaging performed from the skull apex through the skull base without the use of con trast. Sagittal and coronal reformatted images. All CT scans at this location are performed using C T dose reduction for ALARA by means of automated exposure control. COMPARISON: 03/17/2021 FINDINGS: Parenchyma: Mild cortical volume loss and mild chronic small vessel disease are again noted. 6 mm hy perdensity is again seen in the left anterior corpus callosum which is unchanged. The remaining brain parenchyma attenuation is within normal limits. No evidence for hemorrhage, mass or large area of ac dhruv ischemia. Ventricles: Ventricles are normal in size and appear symmetric. Bones: No acute osseous abnormality. Sinuses: Sinuses and mastoid air cells are clear. Soft tissues: Soft tissues including the orbits appear normal. IMPRESSION: No acute abnormality. No significant change since 03/17/2021. Signer Name: Kevin Coronel Jr, MD Signed: 03/20/2021 10:09 AM Workstation Name: [id number]
--- NOTE | 2021-03-20 11:57 | Progress Note ---
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 -CAN RESTART ASA --81 MG DAILY IF GI CLEARED -CHECK LIPID PROFIL ,LDL#130 -lPITOR 40 MG DAILY # PUD (peptic ulcer disease) -PI therapy, supportive care, outpatient GI follow-up for further care. # Possible underlying anxiety -consider adding celexa 20 mg a day. -#HTN (hypertension) -Monitor blood pressure every shift, continue medical management. #DVT prophylaxis -SCDs bilateral lower extremities while in bed, -asa 81 MG CAN BE RESTARTED ONCE GI CLEARED # Advance care planning -Disease education conducted, care plan discussed, diagnosis discussed, patient is full code, patient knowledges understanding and agreement with care plan, +30 minutes. WILL FOLLOW Subjective Date of service: 03/20/21 Principal diagnosis: dizziness Interval history: pt. is not feeling good but feeling funny in the head today no appetite according to him felt light headed when sat up in the bed today CT brain repeat showed no acute event Objective - Vital Sign Vital Signs - 12hr 03/20/21 03/20/21 03/20/21 00:00 00:30 01:00 Temperature 98.2 F Pulse Rate 83 55 L Respiratory 18 12 19 Rate Respiratory 12 Rate [Abdomen] Blood Pressure 122/71 151/76 O2 Sat by Pulse 89 92 Oximetry 03/20/21 03/20/21 03/20/21 01:30 02:00 03:00 Temperature Pulse Rate 72 79 Respiratory 12 14 14 Rate Respiratory Rate [Abdomen] Blood Pressure 125/74 114/71 O2 Sat by Pulse 93 93 Oximetry 03/20/21 03/20/21 03/20/21 03:17 03:55 04:00 Temperature 98.5 F Pulse Rate 90 79 Respiratory 16 Rate Respiratory Rate [Abdomen] Blood Pressure 150/89 O2 Sat by Pulse 97 Oximetry 03/20/21 03/20/21 03/20/21 05:01 06:01 07:00 Temperature 98.1 F Pulse Rate 80 61 78 Respiratory 14 16 14 Rate Respiratory Rate [Abdomen] Blood Pressure 120/69 144/77 127/83 O2 Sat by Pulse 95 94 97 Oximetry 03/20/21 03/20/21 08:00 11:00 Temperature 98.1 F Pulse Rate 70 Respiratory 13 Rate Respiratory Rate [Abdomen] Blood Pressure 136/87 O2 Sat by Pulse 96 Oximetry - General Apperance Constitutional: other (anxious!!!) - EENT EENT: PERRL, mucous membranes moist - Respiratory Respiratory: chest non-tender, lungs clear, rales - Cardiovascular Cardiovascular: regular rate, normal S1, normal S2 Extremities: no peripheral edema bilat - Gastrointestinal Gastrointestinal: normoactive bowel sounds - Integumentary Integumentary: normal, rash - Neurologic Cranial nerve examination: anosmic, PERRL, EOMI, V1/V2/V3 grossly intact, intact Speech examination: intact Detailed sensory examination: intact Cerebellar examination: other (gait is not done ) - Laboratory Findings CBC and BMP: 03/17/21 10:40 03/17/21 10:40 Abnormal Lab Findings: Abnormal Labs 03/17/21 03/17/21 03/17/21 10:40 10:40 Unknown MCHC 35 H RDW 15.6 H Baso % (Auto) 2.7 H Lymph # (Auto) 0.8 L Seg Neutrophils % 75.6 H BUN 7 L Glucose 64 L POC Glucose Calcium 6.1 L Ur Specific [place] 1.044 H 03/18/21 22:47 MCHC RDW Baso % (Auto) Lymph # (Auto) Seg Neutrophils % BUN Glucose POC Glucose 153 H Calcium Ur Specific [place]
[2021-03-20] MEDS: CITALOPRAM 20 MG TAB PO SCH (14:19)
[2021-03-20] MEDS ORDERED: PROMETHAZINE 25 MG TAB PO PRN (14:32)
--- NOTE | 2021-03-20 15:39 | Event Note ---
Called his daughter , Merly Mccauley [phone]. Discussed management plan. She stated she wants to talk to GI and Neurology. I discussed with Nurse and asked her to forward her number to respective Doctors.
--- NOTE | 2021-03-20 15:40 | Gastroenterology Consultation ---
History of Present Illness - Reason for Consult Consult date: 03/20/21 abdominal pain Requesting physician: JOEY DENNIS - History of Present Illness The patient is a 75 yo male who presents with generalized abd pain, n/v along with dizziness/lightheadedness and blurry vision. Patient found to have to have ICH on imaging for which neurology/neurosurgeon has evaluated the patient. pt reports having generalized abd discomfort for months. Poor appetite, and di scomfort with meals. he had egd/colonoscopy in 2018 with egd showing gastritis (no ulcers) and colonoscopy with 2 polyps removed, diverticulosis and avm's. CT scan of abdomen without acute findings. liver enzymes/lipase normal. Past History Past Medical History: acute [place], CAD, hypertension, other (See HPI) Past Surgical History: No surgical history, Other (Nasal septal repair) Social history: single. denies: smoking, alcohol abuse, prescription drug abuse Family history: denies: diabetes, hypertension Medications and Allergies Allergies Allergy/AdvReac Type Severity Reaction Status Date / Time shrimp Allergy Nausea Verified 09/09/20 16:36 Home Medications Medication Instructions Recorded Confirmed Last Taken Type Omeprazole 40 mg PO QDAY 03/17/21 03/17/21 Unknown History Tamsulosin [Flomax] 0.4 mg PO QDAY 03/17/21 03/17/21 Unknown History Active Meds: Active Medications Acetaminophen (Acetaminophen 325 Mg Tab) 650 mg PO Q4H PRN PRN Reason: Pain, Mild (1-3) Acetaminophen (Acetaminophen 650 Mg Rect Supp) 650 mg TN Q4H PRN PRN Reason: Pain, Mild (1-3) Hydrocodone Bitart/Acetaminophen (Hydrocodone/Acetaminophen 5-325 Mg Tab) 1 each PO Q6HR PRN PRN Reason: Pain, Moderate (4-6) Last Admin: 03/20/21 00:30 Dose: 1 each Documented by: Al Hydrox/Mg Hydrox/Simethicone (Alum-Mag Hydroxide-Simethicone 726-022-87yg/5ml Oral Liqd 30 Ml) 30 ml PO Q4H PRN PRN Reason: Indigestion Last Admin: 03/20/21 00:30 Dose: 30 ml Documented by: Bisacodyl (Bisacodyl 10 Mg Rect Supp) 10 mg TN QDAY PRN PRN Reason: Constipation unrelieved by MOM Citalopram Hydrobromide (Citalopram 20 Mg Tab) 20 mg PO QDAY [facility] Last Admin: 03/20/21 14:19 Dose: 20 mg Documented by: Hydralazine HCl (Hydralazine 20 Mg/1 Ml Inj) 10 mg IV Q4HR PRN PRN Reason: If SBP>160 or DBP >110 Magnesium Hydroxide (Magnesium Hydroxide (Mom) Oral Liqd Udc) 30 ml PO Q4H PRN PRN Reason: Constipation Morphine Sulfate (Morphine 2 Mg/1 Ml Inj) 2 mg IV Q4H PRN PRN Reason: Pain, Moderate (4-6) Last Admin: 03/20/21 09:05 Dose: 2 mg Documented by: Ondansetron HCl (Ondansetron 4 Mg Odt Tab) 4 mg PO Q8HR PRN PRN Reason: Nausea And Vomiting Ondansetron HCl (Ondansetron 4 Mg/2 Ml Inj) 4 mg IV Q6H PRN PRN Reason: N/V unrelieved by Ubaldo Pantoprazole Sodium (Pantoprazole 40 Mg Tab) 40 mg PO DAILY [facility] Last Admin: 03/20/21 09:37 Dose: 40 mg Documented by: Promethazine HCl (Promethazine 25 Mg Tab) 25 mg PO Q6H PRN PRN Reason: Nausea And Vomiting Last Admin: 03/20/21 15:14 Dose: 25 mg Documented by: Sucralfate (Sucralfate 1 Gm/10 Ml Oral Liqd) 1 gm PO Q6HR [facility] Last Admin: 03/20/21 11:35 Dose: 1 gm Documented by: reviewed/updated patient's home and current medications Review of Systems - Review of Systems All systems: negative (per HPI) Exam - Constitutional Vital Signs: Temp Pulse Resp BP Pulse Ox 98.1 F 69 18 155/85 93 03/20/21 11:00 03/20/21 13:00 03/20/21 13:00 03/20/21 13:00 03/20/21 13:00 General appearance: no acute distress - Respiratory Respiratory effort: normal Respiratory: bilateral: CTA - Cardiovascular Rhythm: regular Heart Sounds: Present: S1 & S2 - Gastrointestinal General gastrointestinal: Present: soft, tender (mild diffuse ttp), non- distended - Integumentary Integumentary: Present: clear, warm - Neurologic Neurological: alert and oriented x3 - Psychiatric Psychiatric: appropriate mood/affect - Labs CBC & Chem 7: 03/17/21 10:40 03/17/21 10:40 Assessment and Plan 1. Abdominal pain - chronic per pt. CT scan without acute findings. liver enzymes/lipase normal. EGD in 2018 with gastritis (no PUD). cont anti-acid regimen and can try bentyl for abd pain. otherwise, further work-up management can be done as outpatient given chronic sx's and while other acute medical issues are being managed. can cont diet as tolerated from gi stand point.
[2021-03-21] MEDS: SUCRALFATE 1 GM/10 ML ORAL LIQD PO SCH ×3 (07:42→17:30)
[2021-03-21] MEDS: ASPIRIN EC 81 MG TAB PO SCH (11:36)
[2021-03-21] MEDS: PANTOPRAZOLE 40 MG TAB PO SCH (11:37)
[2021-03-21] MEDS: CITALOPRAM 20 MG TAB PO SCH (11:38)
--- NOTE | 2021-03-21 12:01 | Progress Note ---
Assessment and Plan Assessment and plan: 75 YO Male with HTN, VA, PUD, AVM, CAD S/P Stent Placement presents to ED for evaluation. Patient reports " I do not feel well". Patient states that he has experienced abdominal discomfort, nausea, multiple episodes of vomiting, abdominal discomfort over the past 2 days with persistent symptoms over the same timeframe. EMS was notified and upon arrival the patient was found to be in distress and subsequently transported to [facility] for further care and evaluation of the aforementioned symptoms. The patient was seen and evaluated in the emergency department. All lab and imaging studies reviewed. Patient underwent CT scan of the abdomen and pelvis which did not reveal any acute findings. CT scan of the brain revealed hypoattenuation in the anterior corpus callosum which is consistent with intracranial hemorrhage. Patient mated to [facility] for further care and evaluation. Neurosurgery team consulted. Patient denies fever, chills, chest pain, palpitation, productive cough, skin rash, recent ill contacts, or known exposure to COVID-19. Prior admission on 10/26/2017 reviewed. All medication listed at time of admission has been reconciled. Advanced care planning conducted in ED. 03/18: From review of records and also review of imaging studies I did notice that the ER physician documented neurosurgery wanted an MRI both with and without contrast of the brain will proceed to ordering this. Patient reports mild improvement in symptoms although still with some lightheadedness and dizziness disequilibrium could not be fully evaluated at this time. He makes it known that he is abdominal pain has been ongoing for years and he currently had a colonoscopy and is currently under the care of overlock sleeve setter although do not know the name of the overlock sleeve setter. Patient continues to await neurosurgery will go ahead and consult neurologist in the meantime while pending the MRI studies. 03/19 Abdominal pain Patient complains of severe abdominal pain. Says he saw a Doctor from [facility] and had colonoscopy recently Will consult Dr. Cramer 03/20 Called by Nurse that patient has elevated BP 177/99, dizzy, abdominal pain. Will order stat repeat CT head. GI to see today 03/21 Patient still c/o dizziness and abdominal pain. I had discussed with daughter Merly Mccauley and she requested to talk to Neurology and GI and I asked Nurse, Sweetie to send message to Doctors to call her. Will also consult cardiology. Obtain echo. 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 , supportive care, continue medical management as per neuro recommendations. PUD (peptic ulcer disease) PPI therapy, supportive care Abdominal pain Patient complains of severe abdominal pain. Says he saw a Doctor from [facility] and had colonoscopy recently GI consulted, following HTN (hypertension) Monitor blood pressure every shift, continue medical management. DVT prophylaxis SCDs bilateral lower extremities while in bed, hold anticoagulation due to intracranial hemorrhage. Advance care planning Disease education conducted, care plan discussed, diagnosis discussed, patient is full code, patient knowledges understanding and agreement with care plan, +30 minutes. Plan of care discussed in detail with the patient History Interval history: Still c/o Dizziness Abdominal pain Patient requested to see a GI Specialist, consulted Hospitalist Physical - Physical exam Narrative exam: GENERAL: In mild distress from dizziness, abdominal pain. HEAD: Normocephalic. EARS: Hearing grossly intact. MOUTH: Oropharynx is normal. NECK: No adenopathy, no JVD. CHEST: Chest with clear breath sounds bilaterally. No wheezes, rales, or rhonchi. CARDIAC: Regular rate and rhythm. S1 and S2 reg, no murmurs, gallops, or rubs. VASCULAR: No Edema. Peripheral pulses normal and equal in all extremities. ABDOMEN: Soft, tender mid abdomen, no rebound tenderness. Bowel Sounds normal. MUSCULOSKELETAL: Good range of motion of all major joints. Extremities without clubbing, cyanosis or edema. NEUROLOGIC EXAM: AAO x 3, Speech normal. Follows commands. - Constitutional Vitals: Temp Pulse Resp BP Pulse Ox 98.5 F 72 14 138/72 93 03/21/21 03:25 03/21/21 10:30 03/21/21 10:30 03/21/21 10:30 03/21/21 10:30 Results - Labs CBC & Chem 7: 03/22/21 07:21 03/22/21 07:21 Labs: Laboratory Last Values WBC 4.8 K/mm3 (4.5-11.0) 03/17/21 10:40 RBC 4.80 M/mm3 (3.65-5.03) 03/17/21 10:40 Hgb 14.5 gm/dl (11.8-15.2) 03/17/21 10:40 Hct 41.6 % (35.5-45.6) 03/17/21 10:40 MCV 87 fl (84-94) 03/17/21 10:40 MCH 30 pg (28-32) 03/17/21 10:40 MCHC 35 % (32-34) H 03/17/21 10:40 RDW 15.6 % (13.2-15.2) H 03/17/21 10:40 Plt Count 263 K/mm3 (140-440) 03/17/21 10:40 Lymph % (Auto) 17.6 % (13.4-35.0) 03/17/21 10:40 [place] % (Auto) 3.4 % (0.0-7.3) 03/17/21 10:40 Eos % (Auto) 0.7 % (0.0-4.3) 03/17/21 10:40 Baso % (Auto) 2.7 % (0.0-1.8) H 03/17/21 10:40 Lymph # (Auto) 0.8 K/mm3 (1.2-5.4) L 03/17/21 10:40 [place] # (Auto) 0.2 K/mm3 (0.0-0.8) 03/17/21 10:40 Eos # (Auto) 0.0 K/mm3 (0.0-0.4) 03/17/21 10:40 Baso # (Auto) 0.1 K/mm3 (0.0-0.1) 03/17/21 10:40 Seg Neutrophils % 75.6 % (40.0-70.0) H 03/17/21 10:40 Seg Neutrophils # 3.6 K/mm3 (1.8-7.7) 03/17/21 10:40 Sodium 138 mmol/L (137-145) 03/17/21 10:40 Potassium 3.7 mmol/L (3.6-5.0) 03/17/21 10:40 Chloride 100.7 mmol/L (98-107) 03/17/21 10:40 Carbon Dioxide 22 mmol/L (22-30) 03/17/21 10:40 Anion Gap 19 mmol/L 03/17/21 10:40 BUN 7 mg/dL (9-20) L 03/17/21 10:40 Creatinine 0.9 mg/dL (0.8-1.3) 03/17/21 10:40 Estimated GFR > 60 ml/min 03/17/21 10:40 BUN/Creatinine Ratio 8 % 03/17/21 10:40 Glucose 64 mg/dL (75-100) L 03/17/21 10:40 POC Glucose 153 mg/dL (70-105) H 03/18/21 22:47 Calcium 6.1 mg/dL (8.4-10.2) L 03/17/21 10:40 Total Bilirubin 0.30 mg/dL (0.1-1.2) 03/17/21 10:40 AST 22 units/L (5-40) 03/17/21 10:40 ALT 22 units/L (7-56) 03/17/21 10:40 Alkaline Phosphatase 73 units/L (35-129) 03/17/21 10:40 Total Protein 6.4 g/dL (6.3-8.2) 03/17/21 10:40 Albumin 3.9 g/dL (3.9-5) 03/17/21 10:40 Albumin/Globulin Ratio 1.6 % 03/17/21 10:40 Triglycerides 67 mg/dL (2-149) 03/18/21 05:12 Cholesterol 168 mg/dL (50-199) 03/18/21 05:12 LDL Cholesterol Direct 130 mg/dL (50-130) 03/18/21 05:12 HDL Cholesterol 42 mg/dL (40-59) 03/18/21 05:12 Cholesterol/HDL Ratio 4.00 % 03/18/21 05:12 Lipase 26 units/L (13-60) 03/17/21 10:40 Urine Color Yellow (Yellow) 03/17/21 Unknown Urine Turbidity Clear (Clear) 03/17/21 Unknown Urine pH 7.0 (5.0-7.0) 03/17/21 Unknown Ur Specific [place] 1.044 (1.003-1.030) H 03/17/21 Unknown Urine Protein <15 mg/dl mg/dL (Negative) 03/17/21 Unknown Urine Glucose (UA) Neg mg/dL (Negative) 03/17/21 Unknown Urine Ketones Tr mg/dL (Negative) 03/17/21 Unknown Urine Blood Neg (Negative) 03/17/21 Unknown Urine Nitrite Neg (Negative) 03/17/21 Unknown Urine Bilirubin Neg (Negative) 03/17/21 Unknown Urine Urobilinogen 2.0 mg/dL (<2.0) 03/17/21 Unknown Ur Leukocyte Esterase Neg (Negative) 03/17/21 Unknown Urine WBC (Auto) 1.0 /HPF (0.0-6.0) 03/17/21 Unknown Urine RBC (Auto) 1.0 /HPF (0.0-6.0) 03/17/21 Unknown U Epithel Cells (Auto) < 1.0 /HPF (0-13.0) 03/17/21 Unknown Urine Mucus Few /HPF 03/17/21 Unknown Roe/IV: Voiding Method Urinal Active Medications - Current Medications Current Medications: Generic Name Dose Route Start Last Admin Trade Name Freq PRN Reason Stop Dose Admin Acetaminophen 650 mg 03/17/21 17:09 Acetaminophen 325 Mg Tab PO Q4H PRN Pain, Mild (1-3) Acetaminophen 650 mg 03/17/21 17:09 Acetaminophen 650 Mg Rect Supp CA Q4H PRN Pain, Mild (1-3) Hydrocodone Bitart/Acetaminophen 1 each 03/17/21 17:12 03/20/21 00:30 Hydrocodone/Acetaminophen 5-325 Mg Tab PO 1 each Q6HR PRN Administration Pain, Moderate (4-6) Al Hydrox/Mg Hydrox/Simethicone 30 ml 03/17/21 17:09 03/20/21 00:30 Alum-Mag Hydroxide-Simethicone [id number]/5ml Oral Liqd 30 Ml PO 30 ml Q4H PRN Administration Indigestion Aspirin 81 mg 03/21/21 10:00 03/21/21 11:36 Aspirin Ec 81 Mg Tab PO 81 mg QDAY DANIS Administration Bisacodyl 10 mg 03/17/21 17:09 Bisacodyl 10 Mg Rect Supp CA QDAY PRN Constipation unrelieved by MOM Citalopram Hydrobromide 20 mg 03/20/21 13:00 03/21/21 11:38 Citalopram 20 Mg Tab PO 20 mg QDAY DANIS Administration Hydralazine HCl 10 mg 03/20/21 10:00 Hydralazine 20 Mg/1 Ml Inj IV Q4HR PRN If SBP>160 or DBP >110 Magnesium Hydroxide 30 ml 03/17/21 17:09 Magnesium Hydroxide (Mom) Oral Liqd Udc PO Q4H PRN Constipation Morphine Sulfate 2 mg 03/20/21 09:00 03/20/21 23:08 Morphine 2 Mg/1 Ml Inj IV 2 mg Q4H PRN Administration Pain, Moderate (4-6) Ondansetron HCl 4 mg 03/17/21 17:12 Ondansetron 4 Mg Odt Tab PO Q8HR PRN Nausea And Vomiting Ondansetron HCl 4 mg 03/20/21 14:32 03/20/21 23:08 Ondansetron 4 Mg/2 Ml Inj IV 4 mg Q6H PRN Administration N/V unrelieved by Ubaldo Pantoprazole Sodium 40 mg 03/17/21 18:00 03/21/21 11:37 Pantoprazole 40 Mg Tab PO 40 mg DAILY DANIS Administration Promethazine HCl 25 mg 03/20/21 14:32 03/20/21 15:14 Promethazine 25 Mg Tab PO 25 mg Q6H PRN Administration Nausea And Vomiting Sucralfate 1 gm 03/17/21 18:00 03/21/21 11:36 Sucralfate 1 Gm/10 Ml Oral Liqd PO 1 gm Q6HR DANIS Administration
--- NOTE | 2021-03-21 17:54 | Consultation ---
History of Present Illness Consult date: 03/21/21 Requesting physician: JOEY DENNIS Consult reason: other (dizziness) History of present illness: Pt is a 75-year-old AA male with a hx of CAD s/p PCI in 1996, poorly controlled HTN, and gastritis, who presented with complaints of generalized abdominal discomfort and N/V x 3-4 days. Pt also reports he has been lightheaded for the past few days and states "I feel wobbly when I stand up." He denies any syncopal episodes prior to admission; however, he does report hitting his head on a shelf upon standing up x 1-2 days prior to arrival. Initial imaging revealed possible ICH. Neuro/Neurosurg following. Of note, BP significantly elevated. Pt states "I don't care for medications and haven't been taking any of the medications I was supposed to since 1996." Pt denies chest pain, palpitations, SOB, or any additional cardiac complaints. He still reports GI distress as previously mentioned but is tolerating liquids well. Past History Past Medical History: acute [place], CAD, hypertension, other (gastritis) Past Surgical History: PTCA (1996). denies: valve replacement, CABG Social history: single. denies: smoking, alcohol abuse Family history: no significant family history Medications and Allergies Allergies Allergy/AdvReac Type Severity Reaction Status Date / Time shrimp Allergy Nausea Verified 09/09/20 16:36 Home Medications Medication Instructions Recorded Confirmed Last Taken Type Omeprazole 40 mg PO QDAY 03/17/21 03/17/21 Unknown History Tamsulosin [Flomax] 0.4 mg PO QDAY 03/17/21 03/17/21 Unknown History Active Meds: Active Medications Acetaminophen (Acetaminophen 325 Mg Tab) 650 mg PO Q4H PRN PRN Reason: Pain, Mild (1-3) Acetaminophen (Acetaminophen 650 Mg Rect Supp) 650 mg NE Q4H PRN PRN Reason: Pain, Mild (1-3) Hydrocodone Bitart/Acetaminophen (Hydrocodone/Acetaminophen 5-325 Mg Tab) 1 each PO Q6HR PRN PRN Reason: Pain, Moderate (4-6) Last Admin: 03/20/21 00:30 Dose: 1 each Documented by: Al Hydrox/Mg Hydrox/Simethicone (Alum-Mag Hydroxide-Simethicone 068-824-80gz/5ml Oral Liqd 30 Ml) 30 ml PO Q4H PRN PRN Reason: Indigestion Last Admin: 03/20/21 00:30 Dose: 30 ml Documented by: Aspirin (Aspirin Ec 81 Mg Tab) 81 mg PO QDAY [facility] Last Admin: 03/21/21 11:36 Dose: 81 mg Documented by: Bisacodyl (Bisacodyl 10 Mg Rect Supp) 10 mg NE QDAY PRN PRN Reason: Constipation unrelieved by MOM Citalopram Hydrobromide (Citalopram 20 Mg Tab) 20 mg PO QDAY [facility] Last Admin: 03/21/21 11:38 Dose: 20 mg Documented by: Hydralazine HCl (Hydralazine 20 Mg/1 Ml Inj) 10 mg IV Q4HR PRN PRN Reason: If SBP>160 or DBP >110 Magnesium Hydroxide (Magnesium Hydroxide (Mom) Oral Liqd Udc) 30 ml PO Q4H PRN PRN Reason: Constipation Morphine Sulfate (Morphine 2 Mg/1 Ml Inj) 2 mg IV Q4H PRN PRN Reason: Pain, Moderate (4-6) Last Admin: 03/20/21 23:08 Dose: 2 mg Documented by: Ondansetron HCl (Ondansetron 4 Mg Odt Tab) 4 mg PO Q8HR PRN PRN Reason: Nausea And Vomiting Ondansetron HCl (Ondansetron 4 Mg/2 Ml Inj) 4 mg IV Q6H PRN PRN Reason: N/V unrelieved by Reglan Last Admin: 03/20/21 23:08 Dose: 4 mg Documented by: Pantoprazole Sodium (Pantoprazole 40 Mg Tab) 40 mg PO DAILY [facility] Last Admin: 03/21/21 11:37 Dose: 40 mg Documented by: Promethazine HCl (Promethazine 25 Mg Tab) 25 mg PO Q6H PRN PRN Reason: Nausea And Vomiting Last Admin: 03/20/21 15:14 Dose: 25 mg Documented by: Sucralfate (Sucralfate 1 Gm/10 Ml Oral Liqd) 1 gm PO Q6HR [facility] Last Admin: 03/21/21 17:30 Dose: 1 gm Documented by: Review of Systems Constitutional: no fever, no chills, no sweats Ears, nose, mouth and throat: no nasal congestion, no sore throat Cardiovascular: lightheadedness, high blood pressure, no chest pain, no orthopnea, no palpitations, no edema, no syncope, no shortness of breath, no dyspnea on exertion, no paroxysmal nocturnal dyspnea, no claudication Respiratory: no cough, no shortness of breath, no dyspnea on exertion Gastrointestinal: abdominal pain, nausea, vomiting, no diarrhea, no constipation, no hematemesis Genitourinary Male: no dysuria, no flank pain Musculoskeletal: no neck stiffness, no neck pain, no myalgias Integumentary: no rash, no wounds Neurological: head injury, gait dysfunction, no paralysis, no weakness, no parathesias, no numbness, no tingling, no seizures, no syncope, no tremors, no vertigo, no headaches Endocrine: no cold intolerance, no heat intolerance, no polydipsia, no polyuria Hematologic/Lymphatic: no easy bruising, no easy bleeding Allergic/Immunologic: no anaphylaxis Physical Examination Last Vital Signs Temp 98.8 F 03/21/21 16:00 Pulse 88 03/21/21 17:00 Resp 19 03/21/21 17:00 BP 173/90 03/21/21 17:00 Pulse Ox 95 03/21/21 17:00 General appearance: no acute distress HEENT: Positive: EOMI, Normocephaly, Mucus Membranes Moist Neck: Positive: neck supple, trachea midline. Negative: JVD/HJR Cardiac: Positive: Reg Rate and Rhythm, S1/S2. Negative: Audible Murmur Lungs: Positive: clear to auscultation (bilaterally) Neuro: Positive: Grossly Intact Abdomen: Positive: Soft. Negative: Tender Skin: Negative: Rash Musculoskeletal: No Pain Extremities: Present: lower extr. pulses. Absent: edema Results 03/17/21 10:40 03/17/21 10:40 - Imaging and Cardiology Echo: pending EKG: report reviewed, image reviewed - EKG Interpretation EKG: no acute changes EKG interpretations - Telemetry EKG Rhythm: Sinus Rhythm - EKG Sinus rhythms and dysrhythmias: sinus rhythm Chamber hypertrophy or enlargement: left ventricular hypertro Repolarization changes or abnormalities: nonspecific abnormality, ST segment, and/or T wave Assessment and Plan Obtain echo. Check orthostatic VS. Will optimize antihypertensive regimen. Avoid beta blockers for now given slight bradycardia. Continue bASA. Resume statin given h/o CAD/PCI. Pt seen in conjunction with Dr. De Santiago, who agrees with the assessment and plan of care. - Patient Problems (1) Disequilibrium Current Visit: Yes Status: Acute (2) ICH (intracerebral hemorrhage) Current Visit: Yes Status: Suspected (3) Chronic cerebrovascular accident (CVA) Current Visit: Yes Status: Chronic (4) Abdominal discomfort Current Visit: Yes Status: Acute (5) Nausea & vomiting Current Visit: Yes Status: Acute Qualifiers: Vomiting type: unspecified Vomiting Intractability: unspecified Qualified Code(s): R11.2 - Nausea with vomiting, unspecified (6) Gastritis Current Visit: Yes Status: Chronic (7) CAD (coronary artery disease) Current Visit: Yes Status: Chronic Qualifiers: Coronary Disease-Associated Artery/Lesion type: [place] artery [place] vs. transplanted heart: [place] heart Associated angina: without angina Qualified Code(s): I25.10 - Atherosclerotic heart disease of [place] coronary artery without angina pectoris (8) Stented coronary artery Current Visit: Yes Status: Chronic Plan to address problem: 1996 (9) Uncontrolled hypertension Current Visit: Yes Status: Chronic (10) Medical non-compliance Current Visit: Yes Status: Chronic
[2021-03-21] MEDS ORDERED: hydrALAZINE 25 MG TAB PO SCH (20:00)
[2021-03-21] MEDS ORDERED: METOPROLOL TARTRATE 25 MG TAB PO SCH (22:00)
[2021-03-22] MEDS: ONDANSETRON 4 MG/2 ML INJ IV PRN (03:56)
[2021-03-22] MEDS: SUCRALFATE 1 GM/10 ML ORAL LIQD PO SCH ×4 (05:22→18:13)
[2021-03-22 07:45] LABS: Hematocrit 45.5 % (35.5-45.6); Hemoglobin 15.4 gm/dl (11.8-15.2); Mean Corpuscular HGB Conc 34 % (32-34); Mean Corpuscular Volume 86 fl (84-94); Platelet Count 257 K/mm3 (140-440); Red Blood Count 5.29 M/mm3 (3.65-5.03); Red Cell Distribution Width 15.6 % (13.2-15.2)
[2021-03-22 08:00] LABS: BUN/Creatinine Ratio 12; Blood Urea Nitrogen 12 mg/dL (9-20); Calcium 9.7 mg/dL (8.4-10.2); Hemolysis Index 9
--- NOTE | 2021-03-22 08:37 | Progress Note ---
Assessment and Plan Assessment and plan: 75 YO Male with HTN, [place], PUD, AVM, CAD S/P Stent Placement presents to ED for evaluation. Patient reports " I do not feel well". Patient states that he has experienced abdominal discomfort, nausea, multiple episodes of vomiting, abdominal discomfort over the past 2 days with persistent symptoms over the same timeframe. EMS was notified and upon arrival the patient was found to be in distress and subsequently transported to [facility] for further care and evaluation of the aforementioned symptoms. The patient was seen and evaluated in the emergency department. All lab and imaging studies reviewed. Patient underwent CT scan of the abdomen and pelvis which did not reveal any acute findings. CT scan of the brain revealed hypoattenuation in the anterior corpus callosum which is consistent with intracranial hemorrhage. Patient mated to [facility] [place] for further care and evaluation. Neurosurgery team consulted. Patient denies fever, chills, chest pain, palpitation, productive cough, skin rash, recent ill contacts, or known exposure to COVID-19. Prior admission on 10/26/2017 reviewed. All medication listed at time of admission has been reconciled. Advanced care planning conducted in ED. 03/18: From review of records and also review of imaging studies I did notice that the ER physician documented neurosurgery wanted an MRI both with and without contrast of the brain will proceed to ordering this. Patient reports mild improvement in symptoms although still with some lightheadedness and dizziness disequilibrium could not be fully evaluated at this time. He makes it known that he is abdominal pain has been ongoing for years and he currently had a colonoscopy and is currently under the care of line construction engineer although do not know the name of the line construction engineer. Patient continues to await neurosurgery will go ahead and consult neurologist in the meantime while pending the MRI studies. 03/19 Abdominal pain Patient complains of severe abdominal pain. Says he saw a Doctor from [facility] and had colonoscopy recently Will consult Dr. Cramer 03/20 Called by Nurse that patient has elevated BP 177/99, dizzy, abdominal pain. Will order stat repeat CT head. GI to see today 03/21 Patient still c/o dizziness and abdominal pain. I had discussed with daughter Merly Mccauley and she requested to talk to Neurology and GI and I asked Nurse, Sweetie to send message to Doctors to call her. Will also consult cardiology. Obtain echo. 03/22 Patient still c/o dizziness and abdominal pain. I had discussed with daughter Merly Mccauley and she requested to talk to Neurology and GI and I asked Nurse, Sweetie to send message to Doctors to call her. Today still c/o dizziness. BP high this morning so I discussed with his Nurse, Patience to give Hydralazine which was ordered prn. I also discussed with Dr. Márquez, Neurologist. He stated dizziness not due to old hemorrhagic occipital region. I informed him that daughter, Merly Mccauley would like to talk to him and he promise to call her. cardiology also consulted to evaluate dizziness. cardiology following. I have ordered Meclizine prn. I also ordered Vit B12 level, came back normal. I ordered Vit B1 level, still pending.. 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 , supportive care, continue medical management as per neuro recommendations. PUD (peptic ulcer disease) PPI therapy, supportive care Abdominal pain Patient complains of severe abdominal pain. Says he saw a Doctor from [facility] and had colonoscopy recently GI consulted, following HTN (hypertension) Monitor blood pressure every shift, continue medical management. DVT prophylaxis SCDs bilateral lower extremities while in bed, hold anticoagulation due to intracranial hemorrhage. Advance care planning Disease education conducted, care plan discussed, diagnosis discussed, patient is full code, patient knowledges understanding and agreement with care plan, +30 minutes. Plan of care discussed in detail with the patient History Interval history: Still c/o Dizziness Abdominal pain No fever No chest pain Hospitalist Physical - Physical exam Narrative exam: GENERAL: Not in acute distress. HEAD: Normocephalic. EARS: Hearing grossly intact. MOUTH: Oropharynx is normal. NECK: No adenopathy, no JVD. CHEST: Chest with clear breath sounds bilaterally. No wheezes, rales, or rhonchi. CARDIAC: Regular rate and rhythm. S1 and S2 reg, no murmurs, gallops, or rubs. VASCULAR: No Edema. Peripheral pulses normal and equal in all extremities. ABDOMEN: Soft, tender mid abdomen, no rebound tenderness. Bowel Sounds normal. MUSCULOSKELETAL: Good range of motion of all major joints. Extremities without clubbing, cyanosis or edema. NEUROLOGIC EXAM: AAO x 3, Speech normal. Follows commands. - Constitutional Vitals: Temp Pulse Resp BP Pulse Ox 98.5 F 76 15 172/113 98 03/22/21 03:38 03/22/21 08:33 03/22/21 05:30 03/22/21 08:33 03/22/21 05:30 General appearance: Present: no acute distress Results - Labs CBC & Chem 7: 03/22/21 07:21 03/22/21 07:21 Labs: Laboratory Last Values WBC 4.2 K/mm3 (4.5-11.0) L 03/22/21 07:21 RBC 5.29 M/mm3 (3.65-5.03) H 03/22/21 07:21 Hgb 15.4 gm/dl (11.8-15.2) H 03/22/21 07:21 Hct 45.5 % (35.5-45.6) 03/22/21 07:21 MCV 86 fl (84-94) 03/22/21 07:21 MCH 29 pg (28-32) 03/22/21 07:21 MCHC 34 % (32-34) 03/22/21 07:21 RDW 15.6 % (13.2-15.2) H 03/22/21 07:21 Plt Count 257 K/mm3 (140-440) 03/22/21 07:21 Lymph % (Auto) 17.6 % (13.4-35.0) 03/17/21 10:40 [place] % (Auto) 3.4 % (0.0-7.3) 03/17/21 10:40 Eos % (Auto) 0.7 % (0.0-4.3) 03/17/21 10:40 Baso % (Auto) 2.7 % (0.0-1.8) H 03/17/21 10:40 Lymph # (Auto) 0.8 K/mm3 (1.2-5.4) L 03/17/21 10:40 [place] # (Auto) 0.2 K/mm3 (0.0-0.8) 03/17/21 10:40 Eos # (Auto) 0.0 K/mm3 (0.0-0.4) 03/17/21 10:40 Baso # (Auto) 0.1 K/mm3 (0.0-0.1) 03/17/21 10:40 Seg Neutrophils % 75.6 % (40.0-70.0) H 03/17/21 10:40 Seg Neutrophils # 3.6 K/mm3 (1.8-7.7) 03/17/21 10:40 Sodium 138 mmol/L (137-145) 03/22/21 07:21 Potassium 4.1 mmol/L (3.6-5.0) 03/22/21 07:21 Chloride 100.9 mmol/L (98-107) 03/22/21 07:21 Carbon Dioxide 27 mmol/L (22-30) 03/22/21 07:21 Anion Gap 14 mmol/L 03/22/21 07:21 BUN 12 mg/dL (9-20) 03/22/21 07:21 Creatinine 1.0 mg/dL (0.8-1.3) 03/22/21 07:21 Estimated GFR > 60 ml/min 03/22/21 07:21 BUN/Creatinine Ratio 12 % 03/22/21 07:21 Glucose 96 mg/dL (75-100) 03/22/21 07:21 POC Glucose 153 mg/dL (70-105) H 03/18/21 22:47 Calcium 9.7 mg/dL (8.4-10.2) D 03/22/21 07:21 Phosphorus 3.40 mg/dL (2.5-4.5) 03/22/21 07:21 Magnesium 2.10 mg/dL (1.7-2.3) 03/22/21 07:21 Total Bilirubin 0.30 mg/dL (0.1-1.2) 03/17/21 10:40 AST 22 units/L (5-40) 03/17/21 10:40 ALT 22 units/L (7-56) 03/17/21 10:40 Alkaline Phosphatase 73 units/L (35-129) 03/17/21 10:40 Total Protein 6.4 g/dL (6.3-8.2) 03/17/21 10:40 Albumin 3.9 g/dL (3.9-5) 03/17/21 10:40 Albumin/Globulin Ratio 1.6 % 03/17/21 10:40 Triglycerides 67 mg/dL (2-149) 03/18/21 05:12 Cholesterol 168 mg/dL (50-199) 03/18/21 05:12 LDL Cholesterol Direct 130 mg/dL (50-130) 03/18/21 05:12 HDL Cholesterol 42 mg/dL (40-59) 03/18/21 05:12 Cholesterol/HDL Ratio 4.00 % 03/18/21 05:12 Lipase 26 units/L (13-60) 03/17/21 10:40 Vitamin B12 521.8 pg/mL (211-911) 03/21/21 13:04 Urine Color Yellow (Yellow) 03/17/21 Unknown Urine Turbidity Clear (Clear) 03/17/21 Unknown Urine pH 7.0 (5.0-7.0) 03/17/21 Unknown Ur Specific [place] 1.044 (1.003-1.030) H 03/17/21 Unknown Urine Protein <15 mg/dl mg/dL (Negative) 03/17/21 Unknown Urine Glucose (UA) Neg mg/dL (Negative) 03/17/21 Unknown Urine Ketones Tr mg/dL (Negative) 03/17/21 Unknown Urine Blood Neg (Negative) 03/17/21 Unknown Urine Nitrite Neg (Negative) 03/17/21 Unknown Urine Bilirubin Neg (Negative) 03/17/21 Unknown Urine Urobilinogen 2.0 mg/dL (<2.0) 03/17/21 Unknown Ur Leukocyte Esterase Neg (Negative) 03/17/21 Unknown Urine WBC (Auto) 1.0 /HPF (0.0-6.0) 03/17/21 Unknown Urine RBC (Auto) 1.0 /HPF (0.0-6.0) 03/17/21 Unknown U Epithel Cells (Auto) < 1.0 /HPF (0-13.0) 03/17/21 Unknown Urine Mucus Few /HPF 03/17/21 Unknown Roe/IV: Voiding Method Urinal Active Medications - Current Medications Current Medications: Generic Name Dose Route Start Last Admin Trade Name Freq PRN Reason Stop Dose Admin Acetaminophen 650 mg 03/17/21 17:09 Acetaminophen 325 Mg Tab PO Q4H PRN Pain, Mild (1-3) Acetaminophen 650 mg 03/17/21 17:09 Acetaminophen 650 Mg Rect Supp [place] Q4H PRN Pain, Mild (1-3) Hydrocodone Bitart/Acetaminophen 1 each 03/17/21 17:12 03/20/21 00:30 Hydrocodone/Acetaminophen 5-325 Mg Tab PO 1 each Q6HR PRN Administration Pain, Moderate (4-6) Al Hydrox/Mg Hydrox/Simethicone 30 ml 03/17/21 17:09 03/20/21 00:30 Alum-Mag Hydroxide-Simethicone 194-276-38hf/5ml Oral Liqd 30 Ml PO 30 ml Q4H PRN Administration Indigestion Amlodipine Besylate 5 mg 03/21/21 18:13 Amlodipine 5 Mg Tab PO QDAY DANIS Aspirin 81 mg 03/21/21 10:00 03/21/21 11:36 Aspirin Ec 81 Mg Tab PO 81 mg QDAY DANIS Administration Atorvastatin Calcium 40 mg 03/21/21 22:00 03/21/21 23:59 Atorvastatin 40 Mg Tab PO 40 mg QHS DANIS Administration Bisacodyl 10 mg 03/17/21 17:09 Bisacodyl 10 Mg Rect Supp [place] QDAY PRN Constipation unrelieved by MOM Citalopram Hydrobromide 20 mg 03/20/21 13:00 03/21/21 11:38 Citalopram 20 Mg Tab PO 20 mg QDAY DANIS Administration Hydralazine HCl 10 mg 03/20/21 10:00 03/22/21 08:33 Hydralazine 20 Mg/1 Ml Inj IV 10 mg Q4HR PRN Administration If SBP>160 or DBP >110 Lisinopril 20 mg 03/22/21 10:00 Lisinopril 20 Mg Tab PO QDAY [facility] Magnesium Hydroxide 30 ml 03/17/21 17:09 Magnesium Hydroxide (Mom) Oral Liqd Udc PO Q4H PRN Constipation Meclizine HCl 25 mg 03/22/21 08:33 Meclizine 25 Mg Tab PO Q8H PRN Vertigo Morphine Sulfate 2 mg 03/20/21 09:00 03/20/21 23:08 Morphine 2 Mg/1 Ml Inj IV 2 mg Q4H PRN Administration Pain, Moderate (4-6) Ondansetron HCl 4 mg 03/17/21 17:12 Ondansetron 4 Mg Odt Tab PO Q8HR PRN Nausea And Vomiting Ondansetron HCl 4 mg 03/20/21 14:32 03/22/21 03:56 Ondansetron 4 Mg/2 Ml Inj IV 4 mg Q6H PRN Administration N/V unrelieved by Ubaldo Pantoprazole Sodium 40 mg 03/17/21 18:00 03/21/21 11:37 Pantoprazole 40 Mg Tab PO 40 mg DAILY DANIS Administration Promethazine HCl 25 mg 03/20/21 14:32 03/20/21 15:14 Promethazine 25 Mg Tab PO 25 mg Q6H PRN Administration Nausea And Vomiting Sucralfate 1 gm 03/17/21 18:00 03/22/21 05:22 Sucralfate 1 Gm/10 Ml Oral Liqd PO 1 gm Q6HR DANIS Administration
[2021-03-22] MEDS: ASPIRIN EC 81 MG TAB PO SCH (09:51)
[2021-03-22] MEDS: CITALOPRAM 20 MG TAB PO SCH (09:51)
[2021-03-22] MEDS: amLODIPine 5 MG TAB PO SCH (09:51)
[2021-03-22] MEDS: PANTOPRAZOLE 40 MG TAB PO SCH (09:51)
[2021-03-22] MEDS: LISINOPRIL 20 MG TAB PO SCH (09:52)
--- NOTE | 2021-03-22 11:31 | Progress Note ---
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 -CAN RESTART ASA --81 MG DAILY IF GI CLEARED -CHECK LIPID PROFIL ,LDL#130 -lPITOR 40 MG DAILY # Recurrent vertigo -lack of improvmet so far continue with spinning ? light headness -had orthostatic done today difinitly showed increase HR with standing with increase dizziness -BPV can not be excluded --- with his nausea will try scopolamin patch Q3 days -Better hydration and incraese Po intake # PUD (peptic ulcer disease) -PI therapy, supportive care, outpatient GI follow-up for further care. # Possible underlying anxiety ?? -stop celexa -#HTN (hypertension) -Monitor blood pressure every shift, continue medical management. #DVT prophylaxis -SCDs bilateral lower extremities while in bed, -asa 81 MG CAN BE RESTARTED ONCE GI CLEARED # Advance care planning -Disease education conducted, care plan discussed, diagnosis discussed, patient is full code, patient knowledges understanding and agreement with care plan, +30 minutes. WILL FOLLOW as needed tried to call the daughter one number is not in service tried another # and left a message at [phone] Subjective Date of service: 03/22/21 Principal diagnosis: dizziness Interval history: pt. is not feeling good but feeling funny in the head today no appetite according to him felt light headed when sat up in the bed today CT brain repeat showed no acute event orthostatic done today lying BP144/85--HR#87 sitting 156/88--HR#98 standing 164/87---HR#101 Objective - Vital Sign Vital Signs - 12hr 03/21/21 03/21/21 03/22/21 23:30 23:54 00:00 Temperature 98.6 F Pulse Rate 68 58 L 63 Respiratory 14 16 9 L Rate Blood Pressure 152/80 152/80 148/85 Blood Pressure [Right] O2 Sat by Pulse 93 94 92 Oximetry 03/22/21 03/22/21 03/22/21 00:08 00:30 00:52 Temperature Pulse Rate 68 62 Respiratory 16 Rate Blood Pressure 148/85 Blood Pressure [Right] O2 Sat by Pulse 97 87 95 Oximetry 03/22/21 03/22/21 03/22/21 01:00 01:30 02:00 Temperature Pulse Rate 54 L 75 57 L Respiratory 15 18 8 L Rate Blood Pressure 148/81 148/81 148/81 Blood Pressure [Right] O2 Sat by Pulse 95 97 97 Oximetry 03/22/21 03/22/21 03/22/21 02:30 03:00 03:30 Temperature Pulse Rate 68 64 67 Respiratory 16 13 16 Rate Blood Pressure 152/76 144/91 144/91 Blood Pressure [Right] O2 Sat by Pulse 97 96 97 Oximetry 03/22/21 03/22/21 03/22/21 03:38 04:00 04:30 Temperature 98.5 F Pulse Rate 69 61 Respiratory 15 14 Rate Blood Pressure 144/91 169/94 Blood Pressure [Right] O2 Sat by Pulse 93 95 Oximetry 03/22/21 03/22/21 03/22/21 05:00 05:30 05:40 Temperature Pulse Rate 62 58 L 63 Respiratory 14 15 13 Rate Blood Pressure 140/81 140/81 140/81 Blood Pressure [Right] O2 Sat by Pulse 95 98 97 Oximetry 03/22/21 03/22/21 03/22/21 05:50 06:00 06:10 Temperature Pulse Rate 65 82 59 L Respiratory 15 23 15 Rate Blood Pressure 140/81 172/93 172/93 Blood Pressure [Right] O2 Sat by Pulse 97 97 98 Oximetry 03/22/21 03/22/21 03/22/21 06:20 06:30 06:40 Temperature Pulse Rate 69 66 69 Respiratory 21 13 13 Rate Blood Pressure 172/93 172/93 172/93 Blood Pressure [Right] O2 Sat by Pulse 97 98 98 Oximetry 03/22/21 03/22/21 03/22/21 06:50 07:00 07:10 Temperature Pulse Rate 74 101 H 56 L Respiratory 16 19 14 Rate Blood Pressure 172/93 179/111 179/111 Blood Pressure [Right] O2 Sat by Pulse 96 95 98 Oximetry 03/22/21 03/22/21 03/22/21 07:20 07:30 07:40 Temperature Pulse Rate 75 65 69 Respiratory 20 17 17 Rate Blood Pressure 179/111 179/111 179/111 Blood Pressure [Right] O2 Sat by Pulse 98 97 98 Oximetry 03/22/21 03/22/21 03/22/21 07:50 08:00 08:10 Temperature 98.5 F Pulse Rate 65 78 85 Respiratory 16 13 22 Rate Blood Pressure 179/111 172/113 172/113 Blood Pressure [Right] O2 Sat by Pulse 97 97 99 Oximetry 03/22/21 03/22/21 03/22/21 08:20 08:30 08:33 Temperature Pulse Rate 61 66 76 Respiratory 15 12 Rate Blood Pressure 172/113 172/113 172/113 Blood Pressure [Right] O2 Sat by Pulse 97 98 Oximetry 03/22/21 03/22/21 03/22/21 08:40 08:50 08:57 Temperature Pulse Rate 76 85 Respiratory 22 26 H Rate Blood Pressure 154/87 154/87 Blood Pressure [Right] O2 Sat by Pulse 98 98 95 Oximetry 03/22/21 03/22/21 03/22/21 09:00 09:10 09:20 Temperature Pulse Rate 83 81 81 Respiratory 20 15 16 Rate Blood Pressure 158/83 158/83 158/83 Blood Pressure [Right] O2 Sat by Pulse 94 98 97 Oximetry 03/22/21 03/22/21 03/22/21 09:30 09:40 09:50 Temperature Pulse Rate 102 H 82 84 Respiratory 17 15 16 Rate Blood Pressure 158/83 158/83 158/83 Blood Pressure [Right] O2 Sat by Pulse 97 98 98 Oximetry 03/22/21 03/22/21 03/22/21 09:51 09:52 10:00 Temperature Pulse Rate 89 88 88 Respiratory 13 Rate Blood Pressure 158/83 158/83 150/87 Blood Pressure [Right] O2 Sat by Pulse 96 Oximetry 03/22/21 03/22/21 03/22/21 10:10 10:20 10:30 Temperature Pulse Rate 82 80 90 Respiratory 13 16 21 Rate Blood Pressure 150/87 150/87 150/87 Blood Pressure [Right] O2 Sat by Pulse 96 98 99 Oximetry 03/22/21 03/22/21 03/22/21 10:38 10:40 10:50 Temperature Pulse Rate 87 93 H 100 H Respiratory 25 H 18 Rate Blood Pressure 156/88 164/87 Blood Pressure 144/85 [Right] O2 Sat by Pulse 96 97 Oximetry - General Apperance Constitutional: other (uncomfortable dizzy in the head as well as nausea ) - EENT EENT: PERRL, mucous membranes moist - Respiratory Respiratory: lungs clear, rhonchi - Cardiovascular Cardiovascular: normal S1, normal S2 Extremities: no peripheral edema bilat, no clubbing, cyanosis - Gastrointestinal Gastrointestinal: normoactive bowel sounds - Integumentary Integumentary: normal - Neurologic Cranial nerve examination: PERRL, EOMI, other (mild horizintal nystagmus R>L , no facial asymmetry , no focal weakness gait not done) - Laboratory Findings CBC and BMP: 03/22/21 07:21 03/22/21 07:21 Abnormal Lab Findings: Abnormal Labs 03/17/21 03/17/21 03/17/21 10:40 10:40 Unknown WBC RBC Hgb MCHC 35 H RDW 15.6 H Baso % (Auto) 2.7 H Lymph # (Auto) 0.8 L Seg Neutrophils % 75.6 H BUN 7 L Glucose 64 L POC Glucose Calcium 6.1 L Ur Specific [place] 1.044 H 03/18/21 03/22/21 22:47 07:21 WBC 4.2 L RBC 5.29 H Hgb 15.4 H MCHC RDW 15.6 H Baso % (Auto) Lymph # (Auto) Seg Neutrophils % BUN Glucose POC Glucose 153 H Calcium Ur Specific [place]
[2021-03-22] MEDS: SCOPOLAMINE TRANSDERMAL PATCH 72 HR TD SCH (11:45)
--- NOTE | 2021-03-22 12:16 | Gastroenterology Progress Note ---
Assessment and Plan 1. Abdominal pain - chronic per pt. CT scan without acute findings. liver enzymes/lipase normal. EGD in 2018 with gastritis (no PUD). cont anti-acid regimen and can try bentyl for abd pain (I placed the order now for dicyclomine 10mg PO four times daily). otherwise, further work-up management can be done as outpatient given chronicity of the patient's symptoms and the stroke - Patient Problems (1) Abdominal pain Current Visit: Yes Status: Acute Qualifiers: Abdominal location: generalized Qualified Code(s): R10.84 - Generalized abdominal pain (2) Gastritis Current Visit: Yes Status: Chronic (3) ICH (intracerebral hemorrhage) Current Visit: Yes Status: Suspected Subjective Date of service: 03/22/21 Principal diagnosis: abd pain Interval history: Abd pain stable, patient reports periumbilical, mild to moderate, can wake him up out of sleep at times, no alleviating or exacerbating factors, stable for 2 years His main complaint is the significant vertigo since his stroke Objective - Constitutional Vitals: Temp Pulse Resp BP Pulse Ox 98.5 F 100 H 18 164/87 97 03/22/21 08:00 03/22/21 10:50 03/22/21 10:50 03/22/21 10:50 03/22/21 10:50 General appearance: no acute distress - Neck Neck: supple - Respiratory Respiratory effort: normal - Gastrointestinal General gastrointestinal: Present: soft, tender, non-distended - Labs CBC & Chem 7: 03/22/21 07:21 03/22/21 07:21 Labs: Laboratory Results - last 24 hr 03/21/21 03/22/21 03/22/21 13:04 07:21 07:21 WBC 4.2 L RBC 5.29 H Hgb 15.4 H Hct 45.5 MCV 86 MCH 29 MCHC 34 RDW 15.6 H Plt Count 257 Sodium 138 Potassium 4.1 Chloride 100.9 Carbon Dioxide 27 Anion Gap 14 BUN 12 Creatinine 1.0 Estimated GFR > 60 BUN/Creatinine Ratio 12 Glucose 96 Calcium 9.7 D Phosphorus 3.40 Magnesium 2.10 Vitamin B12 521.8
[2021-03-22] MEDS: DICYCLOMINE 10 MG CAP PO SCH ×3 (14:25→21:44)
--- NOTE | 2021-03-22 16:09 | Progress Note ---
Assessment and Plan Echo pending. Orthostatic vitals documented on 03/22/2021 were normal, though pt does report increased dizziness upon standing, which is abnormal. Vertigo is a possible differential, for which Neuro has already started Scopolamine patch. Pt states dizziness and gait imbalance are new symptoms that started after he presented to the hospital. Otherwise will optimize antihypertensive regimen. May be able to consider beta josue if no further bradycardia. Consider also outpatient sleep eval in future. Pt seen in conjunction with Dr. De Santiago, who agrees with the assessment and plan of care. - Patient Problems (1) Disequilibrium Current Visit: Yes Status: Acute (2) ICH (intracerebral hemorrhage) Current Visit: Yes Status: Suspected (3) Chronic cerebrovascular accident (CVA) Current Visit: Yes Status: Chronic (4) Abdominal discomfort Current Visit: Yes Status: Acute (5) Nausea & vomiting Current Visit: Yes Status: Acute Qualifiers: Vomiting type: unspecified Vomiting Intractability: unspecified Qualified Code(s): R11.2 - Nausea with vomiting, unspecified (6) Gastritis Current Visit: Yes Status: Chronic (7) CAD (coronary artery disease) Current Visit: Yes Status: Chronic Qualifiers: Coronary Disease-Associated Artery/Lesion type: [place] artery [place] vs. transplanted heart: [place] heart Associated angina: without angina Qualified Code(s): I25.10 - Atherosclerotic heart disease of [place] coronary artery without angina pectoris (8) Stented coronary artery Current Visit: Yes Status: Chronic Plan to address problem: 1996 (9) Uncontrolled hypertension Current Visit: Yes Status: Chronic (10) Medical non-compliance Current Visit: Yes Status: Chronic Subjective Date of service: 03/22/21 Principal diagnosis: ICH Interval history: States he feels ok today. Still c/o nausea and dizziness. Tele reviewed - SR 70- 90s, no events. Objective Vital Signs Temp Pulse Pulse Resp BP BP Pulse Ox 03/22/21 15:00 82 14 135/77 96 03/22/21 14:30 84 17 135/77 98 03/22/21 14:00 70 13 135/77 93 03/22/21 13:30 76 18 134/78 97 03/22/21 13:20 78 20 134/78 98 03/22/21 13:10 73 15 134/78 97 03/22/21 13:00 75 16 134/78 95 03/22/21 12:50 80 19 139/87 92 03/22/21 12:40 81 17 139/87 95 03/22/21 12:30 81 17 139/87 95 03/22/21 12:20 86 9 L 139/87 97 03/22/21 12:10 80 17 139/87 94 03/22/21 12:00 84 84 17 139/87 100 03/22/21 11:50 85 17 145/85 97 03/22/21 11:40 83 18 145/85 95 03/22/21 11:30 83 17 145/85 97 03/22/21 11:20 88 15 145/85 98 03/22/21 11:10 81 15 145/85 98 03/22/21 11:00 83 15 145/85 95 03/22/21 10:50 100 H 18 164/87 97 03/22/21 10:40 93 H 25 H 156/88 96 03/22/21 10:38 87 144/85 03/22/21 10:30 90 21 150/87 99 03/22/21 10:20 80 16 150/87 98 03/22/21 10:10 82 13 150/87 96 03/22/21 10:00 88 13 150/87 96 03/22/21 09:52 88 158/83 03/22/21 09:51 89 158/83 03/22/21 09:50 84 16 158/83 98 03/22/21 09:40 82 15 158/83 98 03/22/21 09:30 102 H 17 158/83 97 03/22/21 09:20 81 16 158/83 97 03/22/21 09:10 81 15 158/83 98 03/22/21 09:00 83 20 158/83 94 03/22/21 08:57 95 03/22/21 08:50 85 26 H 154/87 98 03/22/21 08:40 76 22 154/87 98 03/22/21 08:33 76 172/113 03/22/21 08:30 66 12 172/113 98 03/22/21 08:20 61 15 172/113 97 03/22/21 08:10 85 22 172/113 99 03/22/21 08:00 98.5 F 76 76 22 172/113 99 03/22/21 07:50 65 16 179/111 97 03/22/21 07:40 69 17 179/111 98 03/22/21 07:30 65 17 179/111 97 03/22/21 07:20 75 20 179/111 98 03/22/21 07:10 56 L 14 179/111 98 03/22/21 07:00 101 H 19 179/111 95 03/22/21 06:50 74 16 172/93 96 03/22/21 06:40 69 13 172/93 98 03/22/21 06:30 66 13 172/93 98 03/22/21 06:20 69 21 172/93 97 03/22/21 06:10 59 L 15 172/93 98 03/22/21 06:00 82 23 172/93 97 03/22/21 05:50 65 15 140/81 97 03/22/21 05:40 63 13 140/81 97 03/22/21 05:30 58 L 15 140/81 98 03/22/21 05:00 62 14 140/81 95 03/22/21 04:30 61 14 169/94 95 03/22/21 04:00 69 15 144/91 93 03/22/21 03:38 98.5 F 03/22/21 03:30 67 16 144/91 97 03/22/21 03:00 64 13 144/91 96 03/22/21 02:30 68 16 152/76 97 03/22/21 02:00 57 L 8 L 148/81 97 03/22/21 01:30 75 18 148/81 97 03/22/21 01:00 54 L 15 148/81 95 03/22/21 00:52 95 03/22/21 00:30 62 16 148/85 87 03/22/21 00:08 68 97 03/22/21 00:00 98.6 F 63 9 L 148/85 92 03/21/21 23:54 58 L 16 152/80 94 03/21/21 23:30 68 14 152/80 93 03/21/21 23:00 63 16 152/80 93 03/21/21 22:30 63 16 138/80 93 03/21/21 22:00 69 16 138/80 90 03/21/21 21:30 65 16 164/85 93 03/21/21 21:00 70 15 168/84 93 03/21/21 20:30 64 17 168/84 96 0605/21 20:00 98.7 F 60 20 168/84 92 03/21/21 19:45 64 97 03/21/21 19:30 59 L 18 155/88 94 03/21/21 19:00 62 18 155/88 90 03/21/21 18:30 71 17 163/84 93 03/21/21 18:00 71 21 163/84 90 03/21/21 17:30 75 16 149/95 92 03/21/21 17:00 88 19 173/90 95 03/21/21 16:30 72 14 173/90 94 - Physical Examination General: No Apparent Distress HEENT: Positive: EOMI, Normocephaly, Mucus Membranes Moist Neck: Positive: neck supple, trachea midline. Negative: JVD/HJR Cardiac: Positive: Reg Rate and Rhythm, S1/S2. Negative: Audible Murmur Lungs: Positive: clear to auscultation (bilaterally) Neuro: Positive: Grossly Intact Abdomen: Positive: Soft. Negative: Tender Skin: Negative: Rash Musculoskeletal: No Pain Extremities: Present: lower extr. pulses. Absent: edema - Labs and Meds CBC 03/22/21 Range/Units 07:21 WBC 4.2 L (4.5-11.0) K/mm3 RBC 5.29 H (3.65-5.03) M/mm3 Hgb 15.4 H (11.8-15.2) gm/dl Hct 45.5 (35.5-45.6) % Plt Count 257 (140-440) K/mm3 Comprehensive Metabolic Panel 03/22/21 Range/Units 07:21 Sodium 138 (137-145) mmol/L Potassium 4.1 (3.6-5.0) mmol/L Chloride 100.9 (98-107) mmol/L Carbon Dioxide 27 (22-30) mmol/L BUN 12 (9-20) mg/dL Creatinine 1.0 (0.8-1.3) mg/dL Glucose 96 (75-100) mg/dL Calcium 9.7 D (8.4-10.2) mg/dL - Imaging and Cardiology EKG: report reviewed, image reviewed Echo: pending - Telemetry EKG Rhythm: Sinus Rhythm - EKG Sinus rhythms and dysrhythmias: sinus rhythm Chamber hypertrophy or enlargement: left ventricular hypertro Repolarization changes or abnormalities: nonspecific abnormality, ST segment, and/or T wave
[2021-03-22] MEDS: ALUM-MAG HYDROXIDE-SIMETHICONE 200-200-20MG/5ML ORAL LIQD 30 ML PO PRN (20:32)
[2021-03-22] MEDS: MECLIZINE 25 MG TAB PO PRN (21:49)
[2021-03-23] MEDS: SUCRALFATE 1 GM/10 ML ORAL LIQD PO SCH ×5 (06:28→23:26)
--- NOTE | 2021-03-23 08:16 | Gastroenterology Progress Note ---
Assessment and Plan 1. Abdominal pain -resolved with dicyclomine today. Chronic per pt. CT scan without acute findings. liver enzymes/lipase normal. EGD in 2018 with gastritis (no PUD). cont anti-acid regimen and bentyl for abd pain Patient may follow-up as an outpatient with Dr. Harper As symptoms are resolved with dicyclomine continue dicyclomine and GI will sign off - Patient Problems (1) Abdominal pain Current Visit: Yes Status: Acute Qualifiers: Abdominal location: generalized Qualified Code(s): R10.84 - Generalized abdominal pain (2) Gastritis Current Visit: Yes Status: Chronic (3) ICH (intracerebral hemorrhage) Current Visit: Yes Status: Suspected Subjective Date of service: 03/23/21 Principal diagnosis: ICH Interval history: Abd pain stable, patient reports periumbilical, mild to moderate, can wake him up out of sleep at times, no alleviating or exacerbating factors, stable for 2 years He had colonoscopy recently with Dr. Harper from our group, a CT scan was ordered. Unfortunately at the moment this morning I do not have remote access to our system so cannot see results However, the patient reports with the dicyclomine that I ordered his abdominal pain is resolved He had mild chest discomfort last night he reports that is resolved today as well Objective - Constitutional Vitals: Temp Pulse Resp BP Pulse Ox 98.0 F 51 L 18 124/68 90 03/23/21 03:40 03/23/21 08:00 03/23/21 08:00 03/23/21 08:00 03/23/21 08:00 General appearance: no acute distress - Respiratory Respiratory effort: normal - Gastrointestinal General gastrointestinal: Present: soft, non-tender - Labs CBC & Chem 7: 03/22/21 07:21 03/22/21 07:21
[2021-03-23] MEDS: ASPIRIN EC 81 MG TAB PO SCH (09:29)
[2021-03-23] MEDS: DICYCLOMINE 10 MG CAP PO SCH ×4 (09:29→21:31)
[2021-03-23] MEDS: amLODIPine 5 MG TAB PO SCH ×2 (09:29→21:33)
[2021-03-23] MEDS: PANTOPRAZOLE 40 MG TAB PO SCH (09:30)
[2021-03-23] MEDS: LISINOPRIL 20 MG TAB PO SCH (09:30)
[2021-03-23] MEDS: MECLIZINE 25 MG TAB PO PRN (09:30)
--- NOTE | 2021-03-23 10:52 | Progress Note ---
Assessment and Plan Telemetry reviewed: Sinus bradycardia 51. No events #Disequilibrium in setting of intracerebral hemorrhage and chronic CVA * Neurology is following #Coronary artery disease with history of coronary artery stent (1996) * Echocardiogram is pending #Hypertension * Continue current antihypertensive regimen amlodipine 5 mg daily, lisinopril 20 mg daily #DVT prophylaxis * Recommend heparin SQ if okay with neurology. If not then continue SCDs. We will follow This patient was seen in conjunction with Dr. Meri Aldana who agrees with this asse ssment and plan of care - Patient Problems (1) Disequilibrium Current Visit: Yes Status: Acute (2) ICH (intracerebral hemorrhage) Current Visit: Yes Status: Suspected (3) Chronic cerebrovascular accident (CVA) Current Visit: Yes Status: Chronic (4) Abdominal discomfort Current Visit: Yes Status: Acute (5) Nausea & vomiting Current Visit: Yes Status: Acute Qualifiers: Vomiting type: unspecified Vomiting Intractability: unspecified Qualified Code(s): R11.2 - Nausea with vomiting, unspecified (6) Gastritis Current Visit: Yes Status: Chronic (7) CAD (coronary artery disease) Current Visit: Yes Status: Chronic Qualifiers: Coronary Disease-Associated Artery/Lesion type: [place] artery [place] vs. transplanted heart: [place] heart Associated angina: without angina Qualified Code(s): I25.10 - Atherosclerotic heart disease of [place] coronary artery without angina pectoris (8) Stented coronary artery Current Visit: Yes Status: Chronic Plan to address problem: 1996 (9) Uncontrolled hypertension Current Visit: Yes Status: Chronic (10) Medical non-compliance Current Visit: Yes Status: Chronic Subjective Date of service: 03/23/21 Principal diagnosis: ICH, Vertigo Interval history: Patient resting comfortably in bed. No shortness of breath or chest pain overnight Telemetry reviewed: Sinus bradycardia 51. No events Objective Last Vital Signs Temp 98.2 F 03/23/21 08:00 Pulse 52 L 03/23/21 09:30 Resp 18 03/23/21 08:00 BP 121/61 03/23/21 09:30 Pulse Ox 90 03/23/21 08:00 - Physical Examination General: No Apparent Distress HEENT: Positive: EOMI, Normocephaly, Mucus Membranes Moist Neck: Positive: neck supple, trachea midline. Negative: JVD/HJR Cardiac: Positive: Reg Rate and Rhythm, S1/S2 Lungs: Positive: Normal Exam, Normal Breath Sounds Neuro: Positive: Grossly Intact Abdomen: Positive: Soft. Negative: Tender Skin: Negative: Rash Musculoskeletal: No Pain Extremities: Present: lower extr. pulses. Absent: edema - Imaging and Cardiology EKG: report reviewed, image reviewed Echo: pending - Telemetry EKG Rhythm: Sinus Bradycardia - EKG Sinus rhythms and dysrhythmias: sinus rhythm Chamber hypertrophy or enlargement: left ventricular hypertro Repolarization changes or abnormalities: nonspecific abnormality, ST segment, and/or T wave
--- NOTE | 2021-03-23 13:10 | Progress Note ---
Assessment and Plan Assessment and plan: 75 YO Male with HTN, CT, PUD, AVM, CAD S/P Stent Placement presents to ED for evaluation. Patient reports " I do not feel well". Patient states that he has experienced abdominal discomfort, nausea, multiple episodes of vomiting, abdominal discomfort over the past 2 days with persistent symptoms over the same timeframe. EMS was notified and upon arrival the patient was found to be in distress and subsequently transported to [facility] for further care and evaluation of the aforementioned symptoms. The patient was seen and evaluated in the emergency department. All lab and imaging studies reviewed. Patient underwent CT scan of the abdomen and pelvis which did not reveal any acute findings. CT scan of the brain revealed hypoattenuation in the anterior corpus callosum which is consistent with intracranial hemorrhage. Patient mated to [facility] for further care and evaluation. Neurosurgery team consulted. Patient denies fever, chills, chest pain, palpitation, productive cough, skin rash, recent ill contacts, or known exposure to COVID-19. Prior admission on 10/26/2017 reviewed. All medication listed at time of admission has been reconciled. Advanced care planning conducted in ED. 03/18: From review of records and also review of imaging studies I did notice that the ER physician documented neurosurgery wanted an MRI both with and without contrast of the brain will proceed to ordering this. Patient reports mild improvement in symptoms although still with some lightheadedness and dizziness disequilibrium could not be fully evaluated at this time. He makes it known that he is abdominal pain has been ongoing for years and he currently had a colonoscopy and is currently under the care of turbine engine assembler although do not know the name of the turbine engine assembler. Patient continues to await neurosurgery will go ahead and consult neurologist in the meantime while pending the MRI studies. 03/19 Abdominal pain Patient complains of severe abdominal pain. Says he saw a Doctor from [facility] and had colonoscopy recently Will consult Dr. Cramer 03/20 Called by Nurse that patient has elevated BP 177/99, dizzy, abdominal pain. Will order stat repeat CT head. GI to see today 03/21 Patient still c/o dizziness and abdominal pain. I had discussed with daughter Merly Mccauley and she requested to talk to Neurology and GI and I asked Nurse, Sweetie to send message to Doctors to call her. Will also consult cardiology. Obtain echo. 03/22 Patient still c/o dizziness and abdominal pain. I had discussed with daughter Merly Mccauley and she requested to talk to Neurology and GI and I asked Nurse, Sweetie to send message to Doctors to call her. Today still c/o dizziness. BP high this morning so I discussed with his Nurse, Patience to give Hydralazine which was ordered prn. I also discussed with Dr. Márquez, Neurologist. He stated dizziness not due to old hemorrhagic occipital region. I informed him that daughter, Merly Mccauley would like to talk to him and he promise to call her. cardiology also consulted to evaluate dizziness. cardiology following. I have ordered Meclizine prn. I also ordered Vit B12 level, came back normal. I ordered Vit B1 level, still pending.. 03/23 Patient states he feels better. Less dizziness. Neurology started him on Scopolamine patch yesterday. I had also started on Meclizine prn after getting OK from Neurology. Also less abd pain. GI had started him on Bentyl. Neurology, GI, Cardiology following. I ordered Vit B1 level, drawn but still pending. 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 , supportive care, continue medical management as per neuro recommendations. PUD (peptic ulcer disease) PPI therapy, supportive care Abdominal pain Patient complains of severe abdominal pain. Says he saw a Doctor from [facility] and had colonoscopy recently GI consulted, following HTN (hypertension) Monitor blood pressure every shift, continue medical management. DVT prophylaxis SCDs bilateral lower extremities while in bed, hold anticoagulation due to intracranial hemorrhage. Advance care planning Disease education conducted, care plan discussed, diagnosis discussed, patient is full code, patient knowledges understanding and agreement with care plan, +30 minutes. Plan of care discussed in detail with the patient History Interval history: Says he feels better Less c/o Dizziness Less abdominal pain No fever No chest pain Hospitalist Physical - Physical exam Narrative exam: GENERAL: Not in acute distress. HEAD: Normocephalic. EARS: Hearing grossly intact. MOUTH: Oropharynx is normal. NECK: No adenopathy, no JVD. CHEST: Chest with clear breath sounds bilaterally. No wheezes, rales, or rhonchi. CARDIAC: Regular rate and rhythm. S1 and S2 reg, no murmurs, gallops, or rubs. VASCULAR: No Edema. Peripheral pulses normal and equal in all extremities. ABDOMEN: Soft, tender mid abdomen, no rebound tenderness. Bowel Sounds normal. MUSCULOSKELETAL: Good range of motion of all major joints. Extremities without clubbing, cyanosis or edema. NEUROLOGIC EXAM: AAO x 3, Speech normal. Follows commands. - Constitutional Vitals: Temp Pulse Resp BP Pulse Ox 98.2 F 51 L 16 132/67 96 03/23/21 08:00 03/23/21 11:31 03/23/21 11:31 03/23/21 11:31 03/23/21 11:31 General appearance: Present: no acute distress Results - Labs CBC & Chem 7: 03/22/21 07:21 03/22/21 07:21 Labs: Laboratory Last Values WBC 4.2 K/mm3 (4.5-11.0) L 03/22/21 07:21 RBC 5.29 M/mm3 (3.65-5.03) H 03/22/21 07:21 Hgb 15.4 gm/dl (11.8-15.2) H 03/22/21 07:21 Hct 45.5 % (35.5-45.6) 03/22/21 07:21 MCV 86 fl (84-94) 03/22/21 07:21 MCH 29 pg (28-32) 03/22/21 07:21 MCHC 34 % (32-34) 03/22/21 07:21 RDW 15.6 % (13.2-15.2) H 03/22/21 07:21 Plt Count 257 K/mm3 (140-440) 03/22/21 07:21 Lymph % (Auto) 17.6 % (13.4-35.0) 03/17/21 10:40 Mcdonald % (Auto) 3.4 % (0.0-7.3) 03/17/21 10:40 Eos % (Auto) 0.7 % (0.0-4.3) 03/17/21 10:40 Baso % (Auto) 2.7 % (0.0-1.8) H 03/17/21 10:40 Lymph # (Auto) 0.8 K/mm3 (1.2-5.4) L 03/17/21 10:40 Mcdonald # (Auto) 0.2 K/mm3 (0.0-0.8) 03/17/21 10:40 Eos # (Auto) 0.0 K/mm3 (0.0-0.4) 03/17/21 10:40 Baso # (Auto) 0.1 K/mm3 (0.0-0.1) 03/17/21 10:40 Seg Neutrophils % 75.6 % (40.0-70.0) H 03/17/21 10:40 Seg Neutrophils # 3.6 K/mm3 (1.8-7.7) 03/17/21 10:40 Sodium 138 mmol/L (137-145) 03/22/21 07:21 Potassium 4.1 mmol/L (3.6-5.0) 03/22/21 07:21 Chloride 100.9 mmol/L (98-107) 03/22/21 07:21 Carbon Dioxide 27 mmol/L (22-30) 03/22/21 07:21 Anion Gap 14 mmol/L 03/22/21 07:21 BUN 12 mg/dL (9-20) 03/22/21 07:21 Creatinine 1.0 mg/dL (0.8-1.3) 03/22/21 07:21 Estimated GFR > 60 ml/min 03/22/21 07:21 BUN/Creatinine Ratio 12 % 03/22/21 07:21 Glucose 96 mg/dL (75-100) 03/22/21 07:21 POC Glucose 153 mg/dL (70-105) H 03/18/21 22:47 Calcium 9.7 mg/dL (8.4-10.2) D 03/22/21 07:21 Phosphorus 3.40 mg/dL (2.5-4.5) 03/22/21 07:21 Magnesium 2.10 mg/dL (1.7-2.3) 03/22/21 07:21 Total Bilirubin 0.30 mg/dL (0.1-1.2) 03/17/21 10:40 AST 22 units/L (5-40) 03/17/21 10:40 ALT 22 units/L (7-56) 03/17/21 10:40 Alkaline Phosphatase 73 units/L (35-129) 03/17/21 10:40 Total Protein 6.4 g/dL (6.3-8.2) 03/17/21 10:40 Albumin 3.9 g/dL (3.9-5) 03/17/21 10:40 Albumin/Globulin Ratio 1.6 % 03/17/21 10:40 Triglycerides 67 mg/dL (2-149) 03/18/21 05:12 Cholesterol 168 mg/dL (50-199) 03/18/21 05:12 LDL Cholesterol Direct 130 mg/dL (50-130) 03/18/21 05:12 HDL Cholesterol 42 mg/dL (40-59) 03/18/21 05:12 Cholesterol/HDL Ratio 4.00 % 03/18/21 05:12 Lipase 26 units/L (13-60) 03/17/21 10:40 Vitamin B12 521.8 pg/mL (211-911) 03/21/21 13:04 Urine Color Yellow (Yellow) 03/17/21 Unknown Urine Turbidity Clear (Clear) 03/17/21 Unknown Urine pH 7.0 (5.0-7.0) 03/17/21 Unknown Ur Specific [place] 1.044 (1.003-1.030) H 03/17/21 Unknown Urine Protein <15 mg/dl mg/dL (Negative) 03/17/21 Unknown Urine Glucose (UA) Neg mg/dL (Negative) 03/17/21 Unknown Urine Ketones Tr mg/dL (Negative) 03/17/21 Unknown Urine Blood Neg (Negative) 03/17/21 Unknown Urine Nitrite Neg (Negative) 03/17/21 Unknown Urine Bilirubin Neg (Negative) 03/17/21 Unknown Urine Urobilinogen 2.0 mg/dL (<2.0) 03/17/21 Unknown Ur Leukocyte Esterase Neg (Negative) 03/17/21 Unknown Urine WBC (Auto) 1.0 /HPF (0.0-6.0) 03/17/21 Unknown Urine RBC (Auto) 1.0 /HPF (0.0-6.0) 03/17/21 Unknown U Epithel Cells (Auto) < 1.0 /HPF (0-13.0) 03/17/21 Unknown Urine Mucus Few /HPF 03/17/21 Unknown Roe/IV: Voiding Method Urinal Active Medications - Current Medications Current Medications: Generic Name Dose Route Start Last Admin Trade Name Freq PRN Reason Stop Dose Admin Acetaminophen 650 mg 03/17/21 17:09 Acetaminophen 325 Mg Tab PO Q4H PRN Pain, Mild (1-3) Acetaminophen 650 mg 03/17/21 17:09 Acetaminophen 650 Mg Rect Supp SD Q4H PRN Pain, Mild (1-3) Hydrocodone Bitart/Acetaminophen 1 each 03/17/21 17:12 03/20/21 00:30 Hydrocodone/Acetaminophen 5-325 Mg Tab PO 1 each Q6HR PRN Administration Pain, Moderate (4-6) Al Hydrox/Mg Hydrox/Simethicone 30 ml 03/17/21 17:09 03/22/21 20:32 Alum-Mag Hydroxide-Simethicone [phone]/5ml Oral Liqd 30 Ml PO 30 ml Q4H PRN Administration Indigestion Amlodipine Besylate 5 mg 03/21/21 18:13 03/23/21 09:29 Amlodipine 5 Mg Tab PO 5 mg QDAY DANIS Administration Aspirin 81 mg 03/21/21 10:00 03/23/21 09:29 Aspirin Ec 81 Mg Tab PO 81 mg QDAY DANIS Administration Atorvastatin Calcium 40 mg 03/21/21 22:00 03/22/21 21:44 Atorvastatin 40 Mg Tab PO 40 mg QHS DANIS Administration Bisacodyl 10 mg 03/17/21 17:09 Bisacodyl 10 Mg Rect Supp SD QDAY PRN Constipation unrelieved by MOM Dicyclomine HCl 10 mg 03/22/21 14:00 03/23/21 09:29 Dicyclomine 10 Mg Cap PO 10 mg QID DANIS Administration Hydralazine HCl 10 mg 03/20/21 10:00 03/22/21 08:33 Hydralazine 20 Mg/1 Ml Inj IV 10 mg Q4HR PRN Administration If SBP>160 or DBP >110 Lisinopril 20 mg 03/22/21 10:00 03/23/21 09:30 Lisinopril 20 Mg Tab PO 20 mg QDAY DANIS Administration Magnesium Hydroxide 30 ml 03/17/21 17:09 Magnesium Hydroxide (Mom) Oral Liqd Udc PO Q4H PRN Constipation Meclizine HCl 25 mg 03/22/21 08:33 03/23/21 09:30 Meclizine 25 Mg Tab PO 25 mg Q8H PRN Administration Vertigo Morphine Sulfate 2 mg 03/20/21 09:00 03/20/21 23:08 Morphine 2 Mg/1 Ml Inj IV 2 mg Q4H PRN Administration Pain, Moderate (4-6) Ondansetron HCl 4 mg 03/17/21 17:12 Ondansetron 4 Mg Odt Tab PO Q8HR PRN Nausea And Vomiting Ondansetron HCl 4 mg 03/20/21 14:32 03/22/21 03:56 Ondansetron 4 Mg/2 Ml Inj IV 4 mg Q6H PRN Administration N/V unrelieved by Ubaldo Pantoprazole Sodium 40 mg 03/17/21 18:00 03/23/21 09:30 Pantoprazole 40 Mg Tab PO 40 mg DAILY DANIS Administration Promethazine HCl 25 mg 03/20/21 14:32 03/20/21 15:14 Promethazine 25 Mg Tab PO 25 mg Q6H PRN Administration Nausea And Vomiting Scopolamine 1 each 03/22/21 12:00 03/22/21 11:45 Scopolamine Transdermal Patch 72 Hr TD 1 each Q3D DANIS Administration Sucralfate 1 gm 03/17/21 18:00 03/23/21 06:28 Sucralfate 1 Gm/10 Ml Oral Liqd PO 1 gm Q6HR DANIS Administration
[2021-03-23] MEDS: ALUM-MAG HYDROXIDE-SIMETHICONE 200-200-20MG/5ML ORAL LIQD 30 ML PO PRN (20:35)
[2021-03-23] MEDS: ONDANSETRON 4 MG/2 ML INJ IV PRN (20:35)
[2021-03-24] MEDS: SUCRALFATE 1 GM/10 ML ORAL LIQD PO SCH ×3 (06:17→18:28)
[2021-03-24 07:36] LABS: Hematocrit 43.8 % (35.5-45.6); Hemoglobin 14.6 gm/dl (11.8-15.2); Mean Corpuscular HGB Conc 33 % (32-34); Mean Corpuscular Volume 88 fl (84-94); Platelet Count 211 K/mm3 (140-440); Red Blood Count 4.98 M/mm3 (3.65-5.03); Red Cell Distribution Width 15.5 % (13.2-15.2)
[2021-03-24 07:57] LABS: BUN/Creatinine Ratio 16; Blood Urea Nitrogen 14 mg/dL (9-20); Calcium 9.3 mg/dL (8.4-10.2); Hemolysis Index 70
[2021-03-24] MEDS: amLODIPine 5 MG TAB PO SCH (10:20)
[2021-03-24] MEDS: MECLIZINE 25 MG TAB PO PRN (10:22)
[2021-03-24] MEDS: PANTOPRAZOLE 40 MG TAB PO SCH (10:23)
[2021-03-24] MEDS: ASPIRIN EC 81 MG TAB PO SCH (10:23)
[2021-03-24] MEDS: DICYCLOMINE 10 MG CAP PO SCH ×4 (10:23→23:15)
--- NOTE | 2021-03-24 12:09 | Progress Note ---
Assessment and Plan Telemetry reviewed: Sinus bradycardia 51. No events #Disequilibrium in setting of intracerebral hemorrhage and chronic CVA * Neurology is following #Coronary artery disease with history of coronary artery stent (1996) * Echocardiogram reviewed (03/21/2021): LVEF is 45 to 50%. LV SF is mildly decreased. Moderate LVH. LV diastolic function is abnormal. RV SF is normal. Mild AR. #Dilated cardiomyopathy EF 45 to 50%. * Optimize cardiac regimen with goal-directed therapy: Initiate Coreg 3.125 mg twice daily with hold parameters. * Referral for outpatient cardiac rehab recommended on discharge #Hypertension * Continue current antihypertensive regimen amlodipine 5 mg daily, lisinopril 20 mg daily #DVT prophylaxis * Recommend heparin SQ if okay with neurology. If not then continue SCDs. Currently stable cardiac status. we will follow This patient was seen in conjunction with Dr. Meri Aldana who agrees with this assessment and plan of care - Patient Problems (1) Disequilibrium Current Visit: Yes Status: Acute (2) ICH (intracerebral hemorrhage) Current Visit: Yes Status: Suspected (3) Chronic cerebrovascular accident (CVA) Current Visit: Yes Status: Chronic (4) Abdominal discomfort Current Visit: Yes Status: Acute (5) Nausea & vomiting Current Visit: Yes Status: Acute Qualifiers: Vomiting type: unspecified Vomiting Intractability: unspecified Qualified Code(s): R11.2 - Nausea with vomiting, unspecified (6) Gastritis Current Visit: Yes Status: Chronic (7) CAD (coronary artery disease) Current Visit: Yes Status: Chronic Qualifiers: Coronary Disease-Associated Artery/Lesion type: [place] artery [place] vs. transplanted heart: [place] heart Associated angina: without angina Qualified Code(s): I25.10 - Atherosclerotic heart disease of [place] coronary artery without angina pectoris (8) Stented coronary artery Current Visit: Yes Status: Chronic Plan to address problem: 1996 (9) Uncontrolled hypertension Current Visit: Yes Status: Chronic (10) Medical non-compliance Current Visit: Yes Status: Chronic (11) Cardiomyopathy Current Visit: Yes Status: Chronic Subjective Date of service: 03/24/21 Principal diagnosis: ICH, Vertigo Interval history: Patient resting comfortably in bed. No shortness of breath or chest pain overnight Telemetry reviewed: Sinus Rhythm 85. No events Objective Last Vital Signs Temp 98.2 F 03/24/21 11:00 Pulse 70 03/24/21 11:00 Resp 16 03/24/21 11:00 BP 122/73 03/24/21 11:00 Pulse Ox 97 03/24/21 11:00 - Physical Examination General: No Apparent Distress HEENT: Positive: EOMI, Normocephaly, Mucus Membranes Moist Neck: Positive: neck supple, trachea midline. Negative: JVD/HJR Cardiac: Positive: Reg Rate and Rhythm, S1/S2 Lungs: Positive: Normal Exam, Normal Breath Sounds Neuro: Positive: Grossly Intact Abdomen: Positive: Soft. Negative: Tender Skin: Negative: Rash Musculoskeletal: No Pain Extremities: Present: lower extr. pulses. Absent: edema - Labs and Meds CBC 03/24/21 Range/Units 07:14 WBC 3.9 L (4.5-11.0) K/mm3 RBC 4.98 (3.65-5.03) M/mm3 Hgb 14.6 (11.8-15.2) gm/dl Hct 43.8 (35.5-45.6) % Plt Count 211 (140-440) K/mm3 Comprehensive Metabolic Panel 03/24/21 Range/Units 07:14 Sodium 132 L (137-145) mmol/L Potassium 4.5 (3.6-5.0) mmol/L Chloride 99.5 (98-107) mmol/L Carbon Dioxide 24 (22-30) mmol/L BUN 14 (9-20) mg/dL Creatinine 0.9 (0.8-1.3) mg/dL Glucose 107 H (75-100) mg/dL Calcium 9.3 (8.4-10.2) mg/dL - Imaging and Cardiology EKG: report reviewed, image reviewed Echo: report reviewed (Echocardiogram reviewed (03/21/2021): LVEF is 45 to 50%. LV SF is mildly decreased. Moderate LVH. LV diastolic function is abnormal. RV SF is normal. Mild AR.) - EKG Sinus rhythms and dysrhythmias: sinus rhythm Chamber hypertrophy or enlargement: left ventricular hypertro Repolarization changes or abnormalities: nonspecific abnormality, ST segment, and/or T wave
--- NOTE | 2021-03-24 13:51 | Progress Note ---
Assessment and Plan --ICH (intracerebral hemorrhage) MRI reveals no acute infarction but evidence of ischemia with hemorrhagic conversion. Inital NCHCT showed calcification and not a hemorrhage. Chronic focal hemorrhagic infarct in left occipital lobe, 1 cm in diameter Neurosurgery consulted, following . cont supportive care, continue medical management as per neuro recommendations. --Disequilibrium/dizziness/lightheadedness Likely due to underlying chronic CVA and ICH PT following recommended home health and roller Walker Also started on meclizine --PUD (peptic ulcer disease) PPI therapy, supportive care --Abdominal pain: Likely due to peptic ulcer disease now resolved GI following --Dilated cardiomyopathy EF 45 to 50%, continue home meds Cardiology consulted and recommended conservative management --HTN (hypertension) Monitor blood pressure every shift, continue medical management. --DVT prophylaxis SCDs bilateral lower extremities while in bed, hold anticoagulation due to intracranial hemorrhage. --Advance care planning Disease education conducted, care plan discussed, diagnosis discussed, patient is full code, patient knowledges understanding and agreement with care plan, +30 minutes. Plan of care discussed in detail with the patient . Brief history: 75 YO Male with HTN, IN, PUD, AVM, CAD S/P Stent Placement presents to ED on 03/17/21 for evaluation of abdominal discomfort, nausea, multiple episodes of vomiting, over the past 2 days with persistent symptoms over the same timeframe. Patient underwent CT scan of the abdomen and pelvis which did not reveal any acute findings. CT scan of the brain revealed hypoattenuation in the anterior corpus callosum which is consistent with intracranial hemorrhage. Patient mated to [facility] for further care and evaluation. Neurosurgery team consulted. Clinical course: 03/18: From review of records and also review of imaging studies I did notice that the ER physician documented neurosurgery wanted an MRI both with and without co ntrast of the brain will proceed to ordering this. Patient reports mild improvement in symptoms although still with some lightheadedness and dizziness disequilibrium could not be fully evaluated at this time. He makes it known that he is abdominal pain has been ongoing for years and he currently had a colonoscopy and is currently under the care of redevelopment specialist although do not know the name of the redevelopment specialist. Patient continues to await neurosurgery will go ahead and consult neurologist in the meantime while pending the MRI studies. 03/19 Abdominal pain Patient complains of severe abdominal pain. Says he saw a Doctor from [facility] and had colonoscopy recently Will consult Dr. Cramer 03/20 Called by Nurse that patient has elevated BP 177/99, dizzy, abdominal pain. Will order stat repeat CT head. GI to see today 03/21 Patient still c/o dizziness and abdominal pain. I had discussed with daughter Merly Mccauley and she requested to talk to Neurology and GI and I asked NurseSweetie to send message to Doctors to call her. Will also consult cardiology. Obtain echo. 03/22 Patient still c/o dizziness and abdominal pain. I had discussed with daughter Merly Mccauley and she requested to talk to Neurology and GI and I asked NurseSweetie to send message to Doctors to call her. Today still c/o dizziness. BP high this morning so I discussed with his Nurse, Patience to give Hydralazine which was ordered prn. I also discussed with Dr. Márquez, Neurologist. He stated dizziness not due to old hemorrhagic occipital region. I informed him that daughter, Merly Mccauley would like to talk to him and he promise to call her. cardiology also consulted to evaluate dizziness. cardiology following. I have ordered Meclizine prn. I also ordered Vit B12 level, came back normal. I ordered Vit B1 level, still pending.. 03/23 Patient states he feels better. Less dizziness. Neurology started him on Scopolamine patch yesterday. I had also started on Meclizine prn after getting OK from Neurology. Also less abd pain. GI had started him on Bentyl. Neurology, GI, Cardiology following. I ordered Vit B1 level, drawn but still pending. BP improved, most recent is 132/67 03/24: transfer ton tele, cont PT eval. abdominal pain improved. d/c soon if clinically stable. Patient states that dizziness slightly improved. Subjective Date of service: 03/24/21 Principal diagnosis: ICH, Vertigo Interval history: Patient seen and examined. Medical records and medication list reviewed. No acute event overnight noted by the RN. Patient denies any chest pain or difficulty breathing. Patient is tolerating diet. His abdominal pain improved but still having lightheadedness Discussed plan of care at bedside with patient. Objective - Exam Narrative Exam: GENERAL: Not in acute distress. HEAD: Normocephalic. EARS: Hearing grossly intact. MOUTH: Oropharynx is normal. NECK: No adenopathy, no JVD. CHEST: Chest with clear breath sounds bilaterally. No wheezes, rales, or rhonchi. CARDIAC: Regular rate and rhythm. S1 and S2 reg, no murmurs, gallops, or rubs. VASCULAR: No Edema. Peripheral pulses normal and equal in all extremities. ABDOMEN: Soft, tender mid abdomen, no rebound tenderness. Bowel Sounds normal. MUSCULOSKELETAL: Good range of motion of all major joints. Extremities without clubbing, cyanosis or edema. NEUROLOGIC EXAM: AAO x 3, Speech normal. Follows commands. - Constitutional Vitals: Vital Signs - 12hr 03/24/21 03/24/21 03/24/21 02:00 03:00 04:00 Temperature Pulse Rate 59 L 61 59 L Pulse Rate [ 60 From Monitor] Respiratory 20 16 16 Rate Blood Pressure 109/77 117/75 112/67 O2 Sat by Pulse 96 96 93 Oximetry 03/24/21 03/24/21 03/24/21 04:05 05:00 06:00 Temperature Pulse Rate 60 45 L 53 L Pulse Rate [ From Monitor] Respiratory 15 16 Rate Blood Pressure 112/67 97/60 O2 Sat by Pulse 97 91 Oximetry 03/24/21 03/24/21 03/24/21 07:00 07:58 08:00 Temperature 98.7 F Pulse Rate 49 L 56 L Pulse Rate [ From Monitor] Respiratory 17 15 Rate Blood Pressure 97/60 111/60 O2 Sat by Pulse 92 97 98 Oximetry 03/24/21 03/24/21 03/24/21 09:00 10:00 11:00 Temperature 98.2 F Pulse Rate 69 55 L 70 Pulse Rate [ From Monitor] Respiratory 16 18 16 Rate Blood Pressure 131/75 115/70 122/73 O2 Sat by Pulse 97 98 97 Oximetry 03/24/21 03/24/21 03/24/21 11:10 11:20 11:32 Temperature Pulse Rate 75 74 73 Pulse Rate [ From Monitor] Respiratory 19 18 20 Rate Blood Pressure 122/73 122/73 122/73 O2 Sat by Pulse 97 97 96 Oximetry 03/24/21 03/24/21 12:09 12:10 Temperature Pulse Rate 97 H Pulse Rate [ From Monitor] Respiratory 20 Rate Blood Pressure 122/73 O2 Sat by Pulse 97 Oximetry - Labs CBC & Chem 7: 03/25/21 05:13 03/25/21 05:13 Labs: Abnormal lab results 03/24/21 03/24/21 Range/Units 07:14 07:14 WBC 3.9 L (4.5-11.0) K/mm3 RDW 15.5 H (13.2-15.2) % Sodium 132 L (137-145) mmol/L Glucose 107 H (75-100) mg/dL
[2021-03-24] MEDS: carvediloL 3.125 MG TAB PO SCH ×2 (14:03→21:26)
--- NOTE | 2021-03-24 14:57 | Progress Note ---
Assessment and Plan 75 yo male with continued light-headedness with no evidence on MRI Brain of an acute process. Recommend non-neurogenic etiology unless patient has a fever or progression, then recommend CSF evaluation. MRI reveals no acute infarction but evidence of ischemia with hemorrhagic conversion. Iniital NCHCT showed calcification and not a hemorrhage. Patient is at high risk of ich if BP is not controlled aggressively. ASA 81 mg PO qday. Statin therapy for a goal LDL of 70. Meclizine prn vertigo. Further evaluation for light-headedness per primary team. Werner Verduzco MD Neurology Subjective Date of service: 03/24/21 Principal diagnosis: ICH, Vertigo Interval history: 75 yo male with continued light-headedness. Objective - Vital Sign Vital Signs - 12hr 03/24/21 03/24/21 03/24/21 03:00 04:00 04:05 Temperature Pulse Rate 61 59 L 60 Pulse Rate [ 60 From Monitor] Respiratory 16 16 Rate Blood Pressure 117/75 112/67 O2 Sat by Pulse 96 93 Oximetry 03/24/21 03/24/21 03/24/21 05:00 06:00 07:00 Temperature Pulse Rate 45 L 53 L 49 L Pulse Rate [ From Monitor] Respiratory 15 16 17 Rate Blood Pressure 112/67 97/60 97/60 O2 Sat by Pulse 97 91 92 Oximetry 03/24/21 03/24/21 03/24/21 07:58 08:00 09:00 Temperature 98.7 F Pulse Rate 56 L 69 Pulse Rate [ From Monitor] Respiratory 15 16 Rate Blood Pressure 111/60 131/75 O2 Sat by Pulse 97 98 97 Oximetry 03/24/21 03/24/21 03/24/21 10:00 11:00 11:10 Temperature 98.2 F Pulse Rate 55 L 70 75 Pulse Rate [ From Monitor] Respiratory 18 16 19 Rate Blood Pressure 115/70 122/73 122/73 O2 Sat by Pulse 98 97 97 Oximetry 03/24/21 03/24/21 03/24/21 11:20 11:32 12:00 Temperature Pulse Rate 74 73 82 Pulse Rate [ From Monitor] Respiratory 18 20 Rate Blood Pressure 122/73 122/73 O2 Sat by Pulse 97 96 Oximetry 03/24/21 03/24/21 03/24/21 12:09 12:10 14:03 Temperature Pulse Rate 97 H Pulse Rate [ From Monitor] Respiratory 20 Rate Blood Pressure 122/73 122/73 O2 Sat by Pulse 97 Oximetry - Laboratory Findings CBC and BMP: 03/24/21 07:14 03/24/21 07:14 Abnormal Lab Findings: Abnormal Labs 03/17/21 03/17/21 03/17/21 10:40 10:40 Unknown WBC RBC Hgb MCHC 35 H RDW 15.6 H Baso % (Auto) 2.7 H Lymph # (Auto) 0.8 L Seg Neutrophils % 75.6 H Sodium BUN 7 L Glucose 64 L POC Glucose Calcium 6.1 L Ur Specific [place] 1.044 H 03/18/21 03/22/21 03/24/21 22:47 07:21 07:14 WBC 4.2 L 3.9 L RBC 5.29 H Hgb 15.4 H MCHC RDW 15.6 H 15.5 H Baso % (Auto) Lymph # (Auto) Seg Neutrophils % Sodium BUN Glucose POC Glucose 153 H Calcium Ur Specific [place] 03/24/21 07:14 WBC RBC Hgb MCHC RDW Baso % (Auto) Lymph # (Auto) Seg Neutrophils % Sodium 132 L BUN Glucose 107 H POC Glucose Calcium Ur Specific Lula
[2021-03-25] MEDS: SUCRALFATE 1 GM/10 ML ORAL LIQD PO SCH ×4 (00:03→17:42)
[2021-03-25 05:49] LABS: Hematocrit 45.3 % (35.5-45.6); Hemoglobin 14.9 gm/dl (11.8-15.2); Mean Corpuscular HGB Conc 33 % (32-34); Mean Corpuscular Volume 87 fl (84-94); Platelet Count 239 K/mm3 (140-440); Red Cell Distribution Width 15.8 % (13.2-15.2)
[2021-03-25 06:08] LABS: BUN/Creatinine Ratio 18; Blood Urea Nitrogen 16 mg/dL (9-20); Calcium 9.3 mg/dL (8.4-10.2); Hemolysis Index 3
[2021-03-25] MEDS: amLODIPine 5 MG TAB PO SCH (10:26)
[2021-03-25] MEDS: carvediloL 3.125 MG TAB PO SCH (10:26)
[2021-03-25] MEDS: ASPIRIN EC 81 MG TAB PO SCH (10:26)
[2021-03-25] MEDS: PANTOPRAZOLE 40 MG TAB PO SCH (10:26)
[2021-03-25] MEDS: SCOPOLAMINE TRANSDERMAL PATCH 72 HR TD SCH (10:41)
[2021-03-25] MEDS: DICYCLOMINE 10 MG CAP PO SCH ×3 (10:41→17:43)
[2021-03-25] MEDS ORDERED: MAGNESIUM CITRATE 300 ML ORAL LIQD PO NR (10:56)
[2021-03-25 11:08] VITALS: BP 127/78
--- NOTE | 2021-03-25 12:02 | Progress Note ---
Assessment and Plan Telemetry reviewed: Sinus bradycardia 51. No events #Disequilibrium in setting of intracerebral hemorrhage and chronic CVA * Neurology is following #Coronary artery disease with history of coronary artery stent (1996) * Echocardiogram reviewed (03/21/2021): LVEF is 45 to 50%. LV SF is mildly decreased. Moderate LVH. LV diastolic function is abnormal. RV SF is normal. Mild AR. #Dilated cardiomyopathy EF 45 to 50%. * Continue goal-directed therapy for cardiomyopathy: ASA 81 mg, atorvastatin 40 mg, Coreg 3.125 mg twice daily. Follow-up with outpatient cardiac rehab on discharge. #Hypertension * Currently normotensive. Continue current antihypertensive regimen #DVT prophylaxis * Recommend heparin SQ if/when okay with neurology. If not then continue SCDs. Currently stable cardiac status. Continue to monitor on telemetry. Patient may discharge from cardiac standpoint. We will follow. Patient should follow-up with Dr. Kajal De Santiago, [facility] energy efficiency specialist within 1 to 2 weeks of discharge. #[id number] This patient was seen in conjunction with Dr. Meri Aldana who agrees with this assessment and plan of care - Patient Problems (1) Disequilibrium Current Visit: Yes Status: Acute (2) ICH (intracerebral hemorrhage) Current Visit: Yes Status: Suspected (3) Chronic cerebrovascular accident (CVA) Current Visit: Yes Status: Chronic (4) Abdominal discomfort Current Visit: Yes Status: Acute (5) Nausea & vomiting Current Visit: Yes Status: Acute Qualifiers: Vomiting type: unspecified Vomiting Intractability: unspecified Qualified Code(s): R11.2 - Nausea with vomiting, unspecified (6) Gastritis Current Visit: Yes Status: Chronic (7) CAD (coronary artery disease) Current Visit: Yes Status: Chronic Qualifiers: Coronary Disease-Associated Artery/Lesion type: [place] artery [place] vs. transplanted heart: [place] heart Associated angina: without angina Qualified Code(s): I25.10 - Atherosclerotic heart disease of [place] coronary artery without angina pectoris (8) Stented coronary artery Current Visit: Yes Status: Chronic Plan to address problem: 1996 (9) Uncontrolled hypertension Current Visit: Yes Status: Chronic (10) Medical non-compliance Current Visit: Yes Status: Chronic (11) Cardiomyopathy Current Visit: Yes Status: Chronic Subjective Date of service: 03/25/21 Principal diagnosis: ICH, Vertigo Interval history: Patient resting comfortably in bed. No shortness of breath or chest pain overnight Telemetry reviewed: Sinus rhythm 69 with burst of sinus tach heart rate 130 noted overnight. No events Objective Last Vital Signs Temp 98.7 F 03/25/21 10:54 Pulse 75 03/25/21 11:18 Resp 18 03/25/21 10:54 BP 127/78 03/25/21 10:54 Pulse Ox 98 03/25/21 10:54 - Physical Examination General: No Apparent Distress HEENT: Positive: EOMI, Normocephaly, Mucus Membranes Moist Neck: Positive: neck supple, trachea midline. Negative: JVD/HJR Cardiac: Positive: Reg Rate and Rhythm, S1/S2 Lungs: Positive: Normal Exam, Normal Breath Sounds Neuro: Positive: Grossly Intact Abdomen: Positive: Soft. Negative: Tender Skin: Negative: Rash Musculoskeletal: No Pain Extremities: Present: lower extr. pulses. Absent: edema - Labs and Meds CBC 03/25/21 Range/Units 05:13 WBC 4.8 (4.5-11.0) K/mm3 RBC 5.20 H (3.65-5.03) M/mm3 Hgb 14.9 (11.8-15.2) gm/dl Hct 45.3 (35.5-45.6) % Plt Count 239 (140-440) K/mm3 Comprehensive Metabolic Panel 03/25/21 Range/Units 05:13 Sodium 140 D (137-145) mmol/L Potassium 4.4 (3.6-5.0) mmol/L Chloride 102.6 (98-107) mmol/L Carbon Dioxide 29 (22-30) mmol/L BUN 16 (9-20) mg/dL Creatinine 0.9 (0.8-1.3) mg/dL Glucose 94 (75-100) mg/dL Calcium 9.3 (8.4-10.2) mg/dL - Imaging and Cardiology EKG: report reviewed, image reviewed Echo: report reviewed (Echocardiogram reviewed (03/21/2021): LVEF is 45 to 50%. LV SF is mildly decreased. Moderate LVH. LV diastolic function is abnormal. RV SF is normal. Mild AR.) - Telemetry EKG Rhythm: Sinus Rhythm - EKG Sinus rhythms and dysrhythmias: sinus rhythm Chamber hypertrophy or enlargement: left ventricular hypertro Repolarization changes or abnormalities: nonspecific abnormality, ST segment, and/or T wave
--- NOTE | 2021-03-25 13:01 | Discharge Summary ---
Providers - Providers Date of Admission: 03/17/21 17:10 Date of discharge: 03/25/21 Attending physician: NIXON SANCHEZ 03/17/21 17:08 Consult to Physician [CONS] Routine Comment: Consulting Provider: DIEGO GENTILE II Physician Instructions: Reason For Exam: Subarachnoid hemorrhage of corpus callosum 03/17/21 17:10 Occupational Therapy Evaluate and Treat [CONS] Routine Comment: Reason For Exam: Neuro deficits Physical Therapy Evaluation and Treat [CONS] Routine Comment: Reason For Exam: Neuro deficits 03/18/21 12:20 Consult to Physician [CONS] Routine Comment: Consulting Provider: IVORY BUNDY Physician Instructions: Reason For Exam: blurry vision 03/19/21 15:44 Consult to Physician [CONS] Routine Comment: called office/ blaise Consulting Provider: ROSI CRAMER Physician Instructions: Reason For Exam: Abdominal pain, nausea, vomiting 03/21/21 12:02 Consult to Cardiology [CONS] Routine Consulting Provider: ZOILA PENNINGTON Reason For Exam: Dizziness 03/23/21 19:39 Consult to Physician [CONS] Routine Comment: Please call tomorrow morning Consulting Provider: STEF DAUGHERTY Physician Instructions: Reason For Exam: Dizziness, follow up 03/24/21 09:50 Physical Therapy Evaluation and Treat [CONS] Routine Comment: Reason For Exam: Debility 03/24/21 12:14 Consult to Cardiac Rehabilitation [CONS] Routine Reason For Exam: Cardiomyopathy Additional Notes/Special Instructions: Please evaluate patient for outpatient cardiac rehab in setting of new or worsening diagnosis of severe cardiomyopathy Primary care physician: MUSIC PUBLISHER Hospitalization Condition: Serious Pertinent studies: 2D echo, head CT, CTA neck, MRI brain, CT abdomen pelvis Hospital course: 75 YO Male with HTN, TX, PUD, AVM, CAD S/P Stent Placement presents to ED on 03/17/21 for evaluation of abdominal discomfort, nausea, multiple episodes of vomiting, over the past 2 days with persistent symptoms over the same timeframe. Patient underwent CT scan of the abdomen and pelvis which did not reveal any acute findings. CT scan of the brain revealed hypoattenuation in the anterior corpus callosum which is consistent with intracranial hemorrhage. Patient mated to [facility] for further care and evaluation. Neurosurgery team consulted. Daily Clinical course: 03/18: From review of records and also review of imaging studies I did notice that the ER physician documented neurosurgery wanted an MRI both with and without contrast of the brain will proceed to ordering this. Patient reports mild improvement in symptoms although still with some lightheadedness and dizziness disequilibrium could not be fully evaluated at this time. He makes it known that he is abdominal pain has been ongoing for years and he currently had a colonoscopy and is currently under the care of bonding agent although do not know the name of the bonding agent. Patient continues to await neurosurgery will go ahead and consult neurologist in the meantime while pending the MRI studies. 03/19 Abdominal pain: Patient complains of severe abdominal pain. Says he saw a Doctor from [facility] and had colonoscopy recently Will consult Dr. Cramer MRI brain showed: No acute intracranial process or abnormal enhancement. Mild chronic small vessel disease in the white matter. Focal chronic infarct in the left anterior corpus callosum. A chronic focal hemorrhagic infarct is focal in the left occipital lobe as described. The clinical significance of this is unclear. CTA Head/neck: no occlusion 03/20 Called by Nurse that patient has elevated BP 177/99, dizzy, abdominal pain. Will order stat repeat CT head. GI to see today 03/[address] head yesterday showed no acute change. patient still c/o dizziness and abdominal pain. I had discussed with daughter Merly Mccauley and she requested to talk to Neurology and GI and I asked NurseSweetie to send message to Doctors to call her. Will also consult cardiology. Obtain echo. 03/22 Patient still c/o dizziness and abdominal pain. I had discussed with daughter Merly Mccauley and she requested to talk to Neurology and GI and I asked NurseSweetie to send message to Doctors to call her. 2D echo showed EF 45 to 50%. Today still c/o dizziness. BP high this morning so I discussed with his Nurse, Patience to give Hydralazine which was ordered prn. I also discussed with Dr. Bundy, Neurologist. He stated dizziness not due to old hemorrhagic occipital region. I informed him that daughter, Merly Mccauley would like to talk to him and he promise to call her. cardiology also consulted to evaluate dizziness. cardiology following. I have ordered Meclizine prn. I also ordered Vit B12 level, came back normal. I ordered Vit B1 level, still pending.. 03/23 Patient states he feels better. Less dizziness. Neurology started him on Scopolamine patch yesterday. I had also started on Meclizine prn after getting OK from Neurology. Also less abd pain. GI had started him on Bentyl. Neurology, GI, Cardiology following. I ordered Vit B1 level, drawn but still pending. BP i mproved, most recent is 132/67 03/24: transfer ton tele, cont PT eval. abdominal pain improved. d/c soon if clinically stable. Patient states that dizziness slightly improved. 03/25: PT recommended HH. Patient feeling much better today, able to tolerate diet pain nausea vomiting. He was able to ambulate without being lightheaded by himself. Patient will be discharged home in stable condition with home health set up. Discharge plan and management was thoroughly discussed with the patient and he verbalized understanding. Disposition: DC-30 STILL A PATIENT Final Discharge Diagnosis (Prints w/discharge instructions): Disequilibrium in setting of intracerebral hemorrhage and chronic CVA. Coronary artery disease with history of coronary artery stent (1996). Dilated cardiomyopathy EF 45 to 50%. Hypertension, stable. ICH (intracerebral hemorrhage). Chronic cerebrovascular accident (CVA). Abdominal discomfort: Gastritis. Nausea & vom iting due to gastritis- resolved. Medical non-compliance Time spent for discharge: 34 minutes Core Measure Documentation - Palliative Care Palliative Care/ Comfort Measures: Not Applicable - Core Measures Any of the following diagnoses?: history only Exam - Physical Exam Narrative exam: GENERAL: Not in acute distress. HEAD: Normocephalic. EARS: Hearing grossly intact. MOUTH: Oropharynx is normal. NECK: No adenopathy, no JVD. CHEST: Chest with clear breath sounds bilaterally. No wheezes, rales, or rhonchi. CARDIAC: Regular rate and rhythm. S1 and S2 reg, no murmurs, gallops, or rub s. VASCULAR: No Edema. Peripheral pulses normal and equal in all extremities. ABDOMEN: Soft, tender mid abdomen, no rebound tenderness. Bowel Sounds normal. MUSCULOSKELETAL: Good range of motion of all major joints. Extremities without clubbing, cyanosis or edema. NEUROLOGIC EXAM: AAO x 3, Speech normal. Follows commands. - Constitutional Vitals: Temp Pulse Resp BP Pulse Ox 98.7 F 75 18 127/78 98 03/25/21 10:54 03/25/21 11:18 03/25/21 10:54 03/25/21 10:54 03/25/21 10:54 Plan Activity: advance as tolerated Weight Bearing Status: Weight Bear as Tolerated Diet: low fat, low salt Special Instructions: physical therapy, home health RN Durable Medical Equipment Needed Upon Discharge: Walker-Rolling Follow up with: PRIMARY CARE, [Primary Care Provider] - 3-5 Days Forms: Discharge Signature Page Prescriptions: AtorvaSTATin [Lipitor] 40 mg PO QHS #30 tablet amLODIPine 5 mg PO QDAY #30 tablet Meclizine [Antivert] 25 mg PO Q8H PRN #14 tablet PRN Reason: Vertigo Sucralfate [Carafate] 1 gm PO Q6HR 30 Days carvediloL [Coreg] 3.125 mg PO BID #60 tablet Aspirin EC [Halfprin EC] 81 mg PO QDAY #30 tablet
--- NOTE | 2021-04-02 17:30 | Event Note ---
Date: 04/01/21 Labs came back revealed low Vit B1. I call ed patient and spoke to him and daughter and recommended to see PCP, Dr. Ollie Fitzpatrick. I called his office, spoke to Sheree, his CAREER TECHNICAL EDUCATION TEACHER. I also faxed result and discharge summary.
== END 2021-03-25 18:42 | disposition home health service (06) | DRG 65 ==
LOC: ED 08:38 → IMCU 17:10 → 4A 03-24 11:45
PROVIDERS: ADMIT Internal Medicine; ATTEND Internal Medicine
DX: I61.9 Nontraumatic intracerebral hemorrhage, unspecified (principal); I42.0 Dilated cardiomyopathy; K27.3 Acute peptic ulcer, site unspecified, without hemorrhage or perforation; I10 Essential (primary) hypertension; I25.10 Atherosclerotic heart disease of native coronary artery without angina pectoris; E87.8 Other disorders of electrolyte and fluid balance, not elsewhere classified; K29.50 Unspecified chronic gastritis without bleeding; H81.10 Benign paroxysmal vertigo, unspecified ear; K21.9 Gastro-esophageal reflux disease without esophagitis; Z79.899 Other long term (current) drug therapy; Z95.5 Presence of coronary angioplasty implant and graft; Z87.891 Personal history of nicotine dependence; Z79.891 Long term (current) use of opiate analgesic; Z79.01 Long term (current) use of anticoagulants; I25.2 Old myocardial infarction; Z91.013 Allergy to seafood; Z91.19 Patient's noncompliance with other medical treatment and regimen
CPT/HCPCS: 36415; 70450; 70496; 70498; 70553; 74177; 80048; 80053; 80061; 81001; 82607; 82962; 83690; 83735; 84100; 84425; 85025; 85027; 93005; 93306; 96365; 96366; 96375; G0378; A9270-GY; A9575; J0360; J0610; J2270; J2405; J3010; Q0169; Q9967